=== PATIENT | female | born 1955 | race African-American/Black ===

== ENCOUNTER 2017-05-12 16:56 | Inpatient (IN) | payer OTHER ==
--- NOTE | 2017-05-12 16:59 | PDOC ---
Rapid Medical Evaluation Time Seen by Provider: 05/12/17 16:59 Medical Evaluation: Allergies Allergy/AdvReac Type Severity Reaction Status Date / Time Penicillins Allergy Verified 05/12/17 16:58 tomatoes Allergy Uncoded 05/12/17 16:58 05/12/17 16:59 61 year old female with a history of RA (started Rituxan on 04/18), asthma, fibromyalgia, and ILD (2L O2 at home 24h/day). Has been having worsening shortness of breath, decreased ET, and cough productive of "clear" sputum for 1.5 weeks. Has has Z-pack x 2 without relief. V/s on arrival are notable for P 132. -EKG -Cardiac labs -CXR -To monitored bed in Main ED for further evaluation
[2017-05-12 17:47] LABS: BASOPHIL 0.3 % (0-2.0); EOSINOPHIL 0.1 % (0-4.5); MCH 27.5 pg (25.7-33.7); MCHC 32.1 g/dl (32.0-36.0); MEAN CELL VOLUME 85.8 fl (80-96); MEAN PLT VOLUME 8.9 fl (7.5-11.1); NEUTROPHILS 94.6 % (42.8-82.8); PLATELET COUNT 289 K/MM3 (134-434); WHITE BLOOD COUNT 15.6 K/mm3 (4.0-10.0)
[2017-05-12 18:00] LABS: INR 0.97 (0.82-1.09); PROTHROMBIN TIME (PATIENT) 10.7 SEC (9.98-11.88)
--- NOTE | 2017-05-12 18:00 | PDOC ---
History of Present Illness - General History Source: Patient, Old Records Exam Limitations: No Limitations <Renee Mike - Last Filed: 05/12/17 18:01> - History of Present Illness Initial Comments: 05/12/17 18:38 Patient is a 61 year old female with significant medical hx of asthma (no intubations or ICU admissions), HLD, pulmonary HTN, migraine, interstitial lung disease, fibromyalgia, rheumatoid arthritis, osteoarthritis, and obesity who is presenting to the ED with progressive shortness of breath for two weeks. 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 She then reportedly underwent two more courses of antibiotics, bactrim and another z-pack, but still experiences symptoms. The patient complains of worsening shortness of breath that is present at all times but worsens with exertion, specifically when walking from one room to another. She also complains of productive cough with clear sputum. 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 However she was told to remain on the steroid for now due to her recent diagnosis with bronchitis. Denies fever, chills, chest pain, hx of blood clots, lower extremity pain or swelling, nausea, vomiting, diarrhea, or dysuria. Surgical Hx: cholecystectomy Allergies: penicillins PCP: Oma Woods MD Computer Programming Supervisor: (affiliated with [facility]) <Nicol Tapia - Last Filed: 05/12/17 18:46> <Ely Landa - Last Filed: 05/12/17 22:09> - General Chief Complaint: Shortness of Breath Stated Complaint: SOB/O2 DEPNEDANT Time Seen by Provider: 05/12/17 16:59 Past History - Past Medical History Asthma: Yes COPD: No (INTERSTITIAL LUNG DISEASE) Hypercholesterolemia: Yes Other medical history: R.A,FIBROMYALGIA - Surgical History Cholecystectomy: Yes - Psycho/Social/Smoking Cessation Hx Anxiety: No Suicidal Ideation: No Smoking History: Never smoked Have you smoked in the past 12 months: No Number of Cigarettes Smoked Daily: 0 Cigars Per Day: 0 Information on smoking cessation initiated: No Hx Alcohol Use: No Drug/Substance Use Hx: No Substance Use Type: None Hx Substance Use Treatment: No <Renee Mike - Last Filed: 05/12/17 18:01> <Nicol Tapia - Last Filed: 05/12/17 18:46> <SyedaEly - Last Filed: 05/12/17 22:09> - Past Medical History Allergies/Adverse Reactions: Allergies Allergy/AdvReac Type Severity Reaction Status Date / Time Penicillins Allergy Verified 05/12/17 16:58 tomatoes Allergy Uncoded 05/12/17 16:58 Home Medications: Ambulatory Orders Montelukast Na [Singulair -] 10 mg PO HS #30 tablet 12/05/15 Albuterol Sulfate Inhaler - [Ventolin HFA Inhaler -] 1 - 2 inh PO QID 02/15/16 Cetirizine HCl [Zyrtec -] 5 mg PO DAILY 02/15/16 Aspirin Coated [Ecotrin -] 81 mg PO DAILY #30 tablet.ec 02/18/16 Budesonide/Formeterol Fumarate [SYMBICORT 80/4.5mcg -] 2 inh PO BID #0 Esomeprazole Magnesium [Nexium 24Hr] 20 mg PO DAILY 05/12/17 Furosemide [Lasix -] 40 mg PO Q2D 05/12/17 Prednisone [Deltasone -] 20 mg PO DAILY 05/12/17 Review of Systems - Review of Systems Comments:: 05/12/17 18:39 GENERAL/CONSTITUTIONAL: No fever or chills. No weakness. HEAD, EYES, EARS, NOSE AND THROAT: No change in vision. No ear pain or discharge. No sore throat. CARDIOVASCULAR: Shortness of breath. No chest pain. RESPIRATORY: Productive cough, dyspnea with exertion. No wheezing or hemoptysis. GASTROINTESTINAL: No nausea, vomiting, diarrhea or constipation. GENITOURINARY: No dysuria, frequency, or change in urination. MUSCULOSKELETAL: No joint or muscle swelling or pain. No neck or back pain. ENDOCRINE: No increased thirst. No abnormal weight change. SKIN: No rash NEUROLOGIC: No headache, vertigo, loss of consciousness, or change in strength/ sensation. <Nicol Tapia - Last Filed: 05/12/17 18:46> *Physical Exam - Vital Signs Last Vital Signs Temp Pulse Resp BP Pulse Ox 98.0 F 123 H 24 156/103 98 05/12/17 16:59 05/12/17 16:59 05/12/17 16:59 05/12/17 16:59 05/12/17 16:59 <Renee Mike - Last Filed: 05/12/17 18:01> - Vital Signs Last Vital Signs Temp Pulse Resp BP Pulse Ox 98.0 F 123 H 24 156/103 98 05/12/17 16:59 05/12/17 16:59 05/12/17 16:59 05/12/17 16:59 05/12/17 16:59 - Physical Exam Comments: 05/12/17 18:41 GENERAL: Awake, alert, and fully oriented, in no acute distress HEAD: No signs of trauma EYES: PERRLA, EOMI, sclera anicteric, conjunctiva clear ENT: Auricles normal inspection, hearing grossly normal, nares patent, oropharynx clear without exudates. Moist mucosa NECK: Normal ROM, supple, no lymphadenopathy, JVD, or masses LUNGS: Crackles right lung base. No wheezes HEART: Regular rate and rhythm, normal S1 and S2, no murmurs, rubs or gallops ABDOMEN: Obese abdomen. Soft, nontender, normoactive bowel sounds. No guarding , no rebound. No masses EXTREMITIES: Normal range of motion, no edema. No clubbing or cyanosis. No calf tenderness. No cords, erythema, or tenderness NEUROLOGICAL: Cranial nerves II through XII grossly intact. Normal speech, normal gait SKIN: Warm, Dry, normal turgor, no rashes or lesions noted. HEMATOLOGIC/LYMPHATIC: No anemia, easy bleeding, or history of blood clots. ALLERGIC/IMMUNOLOGIC: No hives or skin allergy. <Nicol Tapia - Last Filed: 05/12/17 18:46> - Vital Signs Last Vital Signs Temp Pulse Resp BP Pulse Ox 98.0 F 123 H 24 156/103 98 05/12/17 16:59 05/12/17 16:59 05/12/17 16:59 05/12/17 16:59 05/12/17 16:59 <Ely Landa - Last Filed: 05/12/17 22:09> ED Treatment Course - LABORATORY CBC & Chemistry Diagram: 05/12/17 17:30 05/12/17 17:30 <Renee Mike - Last Filed: 05/12/17 18:01> - LABORATORY CBC & Chemistry Diagram: 05/12/17 17:30 05/12/17 17:30 - ADDITIONAL ORDERS Additional order review: Laboratory Results 05/12/17 05/12/17 05/12/17 17:30 17:30 17:30 INR 0.97 Sodium 141 Potassium 4.2 Chloride 101 Carbon Dioxide 28 Anion Gap 12 BUN 13 Creatinine 1.1 H D Creat Clearance w eGFR 50.84 Random Glucose 191 H Calcium 9.3 Total Bilirubin 0.4 AST 31 D ALT 58 D Alkaline Phosphatase 115 Creatine Kinase 154 D Troponin I < 0.02 B-Natriuretic Peptide 79.91 Total Protein 7.2 Albumin 3.5 05/12/17 17:30 RBC 4.97 MCV 85.8 MCHC 32.1 RDW 15.0 MPV 8.9 Neutrophils % 94.6 H Lymphocytes % 2.7 L D Monocytes % 2.3 L Eosinophils % 0.1 D Basophils % 0.3 - RADIOLOGY Radiograph Interpretation: 05/12/17 18:45 Chest X-Ray Impression: Right lung opacification of uncertain etiology. Clinical correlation and follow-up recommended. Please see discussion. Reported By: Cruz Acuna MD <Nicol Tapia - Last Filed: 05/12/17 18:46> - LABORATORY CBC & Chemistry Diagram: 05/12/17 17:30 05/12/17 17:30 - ADDITIONAL ORDERS Additional order review: Laboratory Results 05/12/17 05/12/17 05/12/17 17:30 17:30 17:30 INR 0.97 Sodium 141 Potassium 4.2 Chloride 101 Carbon Dioxide 28 Anion Gap 12 BUN 13 Creatinine 1.1 H D Creat Clearance w eGFR 50.84 Random Glucose 191 H Calcium 9.3 Total Bilirubin 0.4 AST 31 D ALT 58 D Alkaline Phosphatase 115 Creatine Kinase 154 D CK-MB (CK-2) < 1.000 Troponin I < 0.02 B-Natriuretic Peptide 79.91 Total Protein 7.2 Albumin 3.5 05/12/17 17:30 RBC 4.97 MCV 85.8 MCHC 32.1 RDW 15.0 MPV 8.9 Neutrophils % 94.6 H Lymphocytes % 2.7 L D Monocytes % 2.3 L Eosinophils % 0.1 D Basophils % 0.3 <Bharrat,Ely - Last Filed: 05/12/17 22:09> Medical Decision Making - Medical Decision Making 05/12/17 18:01 61 y/o female with h/o asthma with 2 week h/o progressively worsening SOB and SHELLEY. DDx includes but is not limited to: PE, CHF, mass lesion, PNA, PTX, anemia, electrolyte abnormality, toxic/metabolic derangement. Plan: 1. EKG 2. Labs 3. Cardiac monitoring 4. CT chest 5. Observe and re-evaluate <Renee Mike - Last Filed: 05/12/17 18:01> - Medical Decision Making 05/12/17 21:[address] Oma Woods (via answering service) at 21:57 Awaiting call back 05/12/17 22:09 Patient's case discussed with Dr. Woods at 22:09 <Ely Landa - Last Filed: 05/12/17 22:09> *DC/Admit/Observation/Transfer - Attestations Physician Attestion: 05/12/17 18:05 I, Dr. Renee Mike, attest that the scribes documentation that appears above has been prepared under my direction and personally reviewed by me in its entirety. I confirmed that the note above accurately reflects all work, treatment, procedures, and medical decision-making performed by me. <Renee Mike - Last Filed: 05/12/17 18:01> - Attestations Scribe Attestion: 05/12/17 18:46 Documentation prepared by Nicol Tapia, acting as medical screener for Renee Miek MD. <Nicol Tapia - Last Filed: 05/12/17 18:46> <Ely Landa - Last Filed: 05/12/17 22:09> Diagnosis at time of Disposition: Shortness of breath - Referrals Referrals: Oma Woods MD [Primary Care Provider] -
[2017-05-12 18:22] LABS: ALBUMIN 3.5 g/dl (3.4-5.0); ANION GAP 12 (8-16); BILIRUBIN,TOTAL 0.4 mg/dL (0.2-1.0); CALCIUM 9.3 mg/dL (8.5-10.1); CO2 28 mmol/L (21-32); COCKROFT - GAULT 98.5745; CREATININE 1.1 mg/dL (0.55-1.02); GLUCOSE,RANDOM 191 mg/dL (74-106); SGOT/AST 31 U/L (15-37); SGPT/ALT 58 U/L (12-78); TOT PROT 7.2 g/dl (6.4-8.2)
[2017-05-12 18:25] LABS: ALK PHOS 115 U/L (45-117); TROPONIN I < 0.02 ng/ml (0.00-0.05)
--- NOTE | 2017-05-12 22:11 | PDOC ---
*Physical Exam - Vital Signs Last Vital Signs Temp Pulse Resp BP Pulse Ox 98.0 F 123 H 24 156/103 98 05/12/17 16:59 05/12/17 16:59 05/12/17 16:59 05/12/17 16:59 05/12/17 16:59 ED Treatment Course - LABORATORY CBC & Chemistry Diagram: 05/12/17 17:30 05/12/17 17:30 - ADDITIONAL ORDERS Additional order review: Laboratory Results 05/12/17 05/12/17 05/12/17 17:30 17:30 17:30 INR D-Dimer 660 H Sodium 141 Potassium 4.2 Chloride 101 Carbon Dioxide 28 Anion Gap 12 BUN 13 Creatinine 1.1 H D Creat Clearance w eGFR 50.84 Random Glucose 191 H Calcium 9.3 Total Bilirubin 0.4 AST 31 D ALT 58 D Alkaline Phosphatase 115 Creatine Kinase 154 D CK-MB (CK-2) < 1.000 Troponin I < 0.02 B-Natriuretic Peptide 79.91 Total Protein 7.2 Albumin 3.5 05/12/17 17:30 INR 0.97 D-Dimer Sodium Potassium Chloride Carbon Dioxide Anion Gap BUN Creatinine Creat Clearance w eGFR Random Glucose Calcium Total Bilirubin AST ALT Alkaline Phosphatase Creatine Kinase CK-MB (CK-2) Troponin I B-Natriuretic Peptide Total Protein Albumin 05/12/17 17:30 RBC 4.97 MCV 85.8 MCHC 32.1 RDW 15.0 MPV 8.9 Neutrophils % 94.6 H Lymphocytes % 2.7 L D Monocytes % 2.3 L Eosinophils % 0.1 D Basophils % 0.3 *DC/Admit/Observation/Transfer Diagnosis at time of Disposition: Shortness of breath, Interstitial lung disease due to connective tissue disease - Discharge Dispostion Condition at time of disposition: Stable Admit: Yes - Referrals Referrals: Oma Woods MD [Primary Care Provider] - - Patient Instructions - Post Discharge Activity
[2017-05-12] MEDS ORDERED: PANTOPRAZOLE SODIUM 40 MG in SODIUM CHLORIDE 100 ML IVPB SCH (23:45)
[2017-05-13] MEDS ORDERED: ALBUTEROL SO4 2.5/IPRATROPIUM 0.5 INH SOL 3 ML VIAL.NEB. NEB PRN
[2017-05-13] MEDS: BUDESONIDE/FORMETEROL FUMARATE 160/4.5 mcg INHALER IH SCH ×3 (00:44→22:20)
[2017-05-13] MEDS: HEPARIN NA (PORCINE) 5,000 UNITS/ML 1ML VIAL SQ SCH ×3 (00:45→22:17)
[2017-05-13] MEDS: methylPREDNISolone NA SUCC 125 MG/2 ML VIAL IVPB SCH ×4 (00:45→17:39)
[2017-05-13] MEDS: ALBUTEROL SO4 2.5/IPRATROPIUM 0.5 INH SOL 3 ML VIAL.NEB. NEB SCH ×4 (00:45→23:54)
[2017-05-13] MEDS ORDERED: ALBUTEROL SO4 2.5/IPRATROPIUM 0.5 INH SOL 3 ML VIAL.NEB. NEB ONE (00:50)
[2017-05-13] MEDS ORDERED: PANTOPRAZOLE SODIUM 100 ML IVPB ONE (00:50)
[2017-05-13] MEDS ORDERED: methylPREDNISolone NA SUCC 125 MG/2 ML VIAL ONE ×4 (00:50→15:07)
[2017-05-13] MEDS ORDERED: HEPARIN NA (PORCINE) 5,000 UNITS/ML 1ML VIAL ONE ×2 (00:50→10:25)
[2017-05-13] MEDS ORDERED: LORazepam 0.5 MG TABLET ONE (06:16)
[2017-05-13] MEDS: LORazepam 1 MG TABLET PO SCH ×3 (06:26→22:17)
[2017-05-13] MEDS ORDERED: PANTOPRAZOLE SODIUM 40 MG VIAL ONE (10:25)
[2017-05-13] MEDS: PANTOPRAZOLE SODIUM 100 ML IVPB SCH ×2 (10:33→22:18)
--- NOTE | 2017-05-13 11:50 | EKG ---
Test Reason : Blood Pressure : / mmHG Vent. Rate : 117 BPM Atrial Rate : 117 BPM P-R Int : 124 ms QRS Dur : 066 ms QT Int : 306 ms P-R-T Axes : 064 050 155 degrees QTc Int : 426 ms SINUS TACHYCARDIA POSSIBLE LEFT ATRIAL ENLARGEMENT T WAVE ABNORMALITY, CONSIDER ANTEROLATERAL ISCHEMIA ABNORMAL ECG WHEN COMPARED WITH ECG OF 27-AUG-2016 22:24, T WAVE VARIATION Confirmed by IBETH TAYLOR, CAMPBELL ([id number]) on 05/13/2017 11:49:49 AM Referred By: Confirmed By:CAMPBELL CRISTINA MD
--- NOTE | 2017-05-13 13:08 | HP ---
Admitting History and Physical - Admission Chief Complaint: dyspnea History of Present Illness: Patient is a 61 year old female with significant medical hx of asthma (no intubations or ICU admissions), HLD, pulmonary HTN, migraine, interstitial lung disease, fibromyalgia, rheumatoid arthritis, osteoarthritis, and obesity who is presenting to the ED with progressive shortness of breath for two weeks. Two weeks ago the patient was diagnosed with bronchitis by facility environmental technician and given a three day course of a z-pack which she states did not relieve her symptoms. She then reportedly underwent two more courses of antibiotics, bactrim and another z-pack, but still experiences symptoms. The patient complains of worsening shortness of breath that is present at all times but worsens with exertion, specifically when walking from one room to another. She also complains of productive cough with clear sputum. 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 However she was told to remain on the steroid for now due to her recent diagnosis with bronchitis. Denies fever, chills, chest pain, hx of blood clots, lower extremity pain or swelling, nausea, vomiting, diarrhea, or dysuria. 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 History of Recent Travel: No Home Medications - Allergies Allergies/Adverse Reactions: Allergies Allergy/AdvReac Type Severity Reaction Status Date / Time Penicillins Allergy Verified 05/12/17 16:58 tomatoes Allergy Uncoded 05/12/17 16:58 - Home Medications Home Medications: Ambulatory Orders Montelukast Na [Singulair -] 10 mg PO HS #30 tablet 12/05/15 Albuterol Sulfate Inhaler - [Ventolin HFA Inhaler -] 1 - 2 inh PO QID 02/15/16 Cetirizine HCl [Zyrtec -] 5 mg PO DAILY 02/15/16 Aspirin Coated [Ecotrin -] 81 mg PO DAILY #30 tablet.ec 02/18/16 Budesonide/Formeterol Fumarate [SYMBICORT 80/4.5mcg -] 2 inh PO BID #0 Esomeprazole Magnesium [Nexium 24Hr] 20 mg PO DAILY 05/12/17 Furosemide [Lasix -] 40 mg PO Q2D 05/12/17 Prednisone [Deltasone -] 20 mg PO DAILY 05/12/17 Family Disease History - Family Disease History Family Disease History: Other: Mother (CVA in her late 70s) Review of Systems - Review of Systems Constitutional: reports: Malaise, Weakness Eyes: reports: No Symptoms HENT: reports: No Symptoms, Nasal Congestion Neck: reports: No Symptoms Cardiovascular: reports: Shortness of Breath Respiratory: reports: Cough, Orthopnea, Snoring, SOB, SOB on Exertion, Wheezing Gastrointestinal: reports: No Symptoms Genitourinary: reports: No Symptoms Breasts: reports: No Symptoms Reported Musculoskeletal: reports: Back Pain Integumentary: reports: No Symptoms Neurological: reports: No Symptoms Endocrine: reports: No Symptoms Hematology/Lymphatic: reports: No Symptoms Psychiatric: reports: No Symptoms Physical Examination Vital Signs: Vital Signs Temperature 98.0 F 05/13/17 11:32 Pulse Rate 100 H 05/13/17 11:32 Respiratory Rate 22 05/13/17 11:32 Blood Pressure 150/84 05/13/17 11:32 O2 Sat by Pulse Oximetry (%) 100 05/13/17 11:32 Findings/Remarks: sitting up un bed patietn seen in ER Constitutional: Yes: Well Nourished, Mild Distress Eyes: Yes: WNL HENT: Yes: WNL, Atraumatic, Normocephalic Neck: Yes: WNL, Supple, Trachea Midline Cardiovascular: Yes: WNL, Regular Rate and Rhythm Respiratory: Yes: WNL, Diminished, SOB Gastrointestinal: Yes: WNL, Normal Bowel Sounds, Soft Musculoskeletal: Yes: WNL Extremities: Yes: WNL Edema: No Peripheral Pulses WNL: Yes Integumentary: Yes: WNL Neurological: Yes: WNL, Alert, Oriented ...Motor Strength: WNL Psychiatric: Yes: WNL, Alert, Oriented Problem List - Problems (1) Interstitial lung disease due to connective tissue disease Code(s): M35.8 - OTHER SPECIFIED SYSTEMIC INVOLVEMENT OF CONNECTIVE TISSUE J84.89 - OTHER SPECIFIED INTERSTITIAL PULMONARY DISEASES (2) Acute asthma exacerbation Code(s): J45.901 - UNSPECIFIED ASTHMA WITH (ACUTE) EXACERBATION Qualifiers: Asthma severity: moderate persistent Qualified Code(s): J45.41 - Moderate persistent asthma with (acute) exacerbation (3) Asthma Code(s): J45.909 - UNSPECIFIED ASTHMA, UNCOMPLICATED (4) Cough Code(s): R05 - COUGH (5) Dyspnea Code(s): R06.00 - DYSPNEA, UNSPECIFIED Qualifiers: Dyspnea type: shortness of breath Qualified Code(s): R06.02 - Shortness of breath (6) Morbid obesity due to excess calories Code(s): E66.01 - MORBID (SEVERE) OBESITY DUE TO EXCESS CALORIES
--- NOTE | 2017-05-13 14:36 | CON.PULM ---
Consult Consult Specialty:: PULMONARY Referred by:: Dr. Woods Reason for Consultation:: shortness of breath - History of Present Illness Chief Complaint: shortness of breath History of Present Illness: 61yo female with h/o asthma, rheumatoid arthritis with associated interstitial lung disease, pulmonary HTN, chronic hypoxic respiratory failure on home O2, fibromyalgia, morbid obesity who presents with worsening shortness of breath. She has been treated with rituxan for her rheumatoid arthritis and has received 2 doses so far with the intention of getting off chronic prednisone. Has been on prednisone 20mg daily for "months." Last seen by me in August 2016 before I referred her down to [facility] for further ILD evaluation. She was recently seen by her victim witness administrator at [facility] but was kept on prednisone as she was experiencing bronchitis symptoms. No fevers, chills or sweats. She reports chest tightness, wheezing and shortness of breath typical of her asthma exacerbations. CTA chest done in the ER did not show any evidence of PE but showing chronic interstitial/fibrotic changes not significantly changed from Aug 2016. 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 History of Recent Travel: No Home Medications - Allergies Allergies/Adverse Reactions: Allergies Allergy/AdvReac Type Severity Reaction Status Date / Time Penicillins Allergy Verified 05/12/17 16:58 tomatoes Allergy Uncoded 05/12/17 16:58 - Home Medications Home Medications: Ambulatory Orders Montelukast Na [Singulair -] 10 mg PO HS #30 tablet 12/05/15 Albuterol Sulfate Inhaler - [Ventolin HFA Inhaler -] 1 - 2 inh PO QID 02/15/16 Cetirizine HCl [Zyrtec -] 5 mg PO DAILY 02/15/16 Aspirin Coated [Ecotrin -] 81 mg PO DAILY #30 tablet.ec 02/18/16 Budesonide/Formeterol Fumarate [SYMBICORT 80/4.5mcg -] 2 inh PO BID #0 Esomeprazole Magnesium [Nexium 24Hr] 20 mg PO DAILY 05/12/17 Furosemide [Lasix -] 40 mg PO Q2D 05/12/17 Prednisone [Deltasone -] 20 mg PO DAILY 05/12/17 Family Disease History - Family Disease History Family Disease History: Other: Mother (CVA in her late 70s) Review of Systems - Review of Systems Constitutional: denies: Chills, Fever Eyes: denies: Recent Change in Vision HENT: denies: Nasal Congestion, Throat Pain Neck: denies: Stiffness, Tenderness Cardiovascular: reports: Shortness of Breath. denies: Chest Pain, Palpitations Respiratory: reports: Cough, Exercise Intolerance, SOB on Exertion, Wheezing. denies: Hemoptysis Gastrointestinal: denies: Abdominal Pain, Nausea, Vomiting Genitourinary: denies: Dysuria, Hematuria Neurological: denies: Dizziness, Headache Endocrine: denies: Unexplained Weight Gain, Unexplained Weight Loss Physical Exam Vital Sings: Vital Signs Temperature 97.7 F 05/13/17 12:27 Pulse Rate 109 H 05/13/17 12:27 Respiratory Rate 18 05/13/17 12:27 Blood Pressure 122/85 05/13/17 12:27 O2 Sat by Pulse Oximetry (%) 100 05/13/17 11:32 Constitutional: Yes: Calm Eyes: Yes: Conjunctiva Clear, EOM Intact HENT: Yes: Atraumatic, Normocephalic Neck: Yes: Supple, Trachea Midline Cardiovascular: Yes: Regular Rate and Rhythm Respiratory: Yes: Regular, Rhonchi (scattered) ...Clubbing: No Gastrointestinal: Yes: Normal Bowel Sounds, Soft. No: Tenderness Edema: No Imaging - Results Chest X-ray: Report Reviewed, Image Reviewed Cat Scan: Report Reviewed, Image Reviewed (subplerual fibrosis) Problem List - Problems (1) Acute asthma exacerbation Code(s): J45.901 - UNSPECIFIED ASTHMA WITH (ACUTE) EXACERBATION Qualifiers: Asthma severity: moderate persistent Qualified Code(s): J45.41 - Moderate persistent asthma with (acute) exacerbation (2) Rheumatoid arthritis Code(s): M06.9 - RHEUMATOID ARTHRITIS, UNSPECIFIED (3) Interstitial lung disease due to connective tissue disease Code(s): M35.8 - OTHER SPECIFIED SYSTEMIC INVOLVEMENT OF CONNECTIVE TISSUE J84.89 - OTHER SPECIFIED INTERSTITIAL PULMONARY DISEASES (4) Morbid obesity with BMI of 40.0-44.9, adult Code(s): E66.01 - MORBID (SEVERE) OBESITY DUE TO EXCESS CALORIES Z68.41 - BODY MASS INDEX (BMI) 40.0-44.9, ADULT (5) Pulmonary hypertension Code(s): I27.2 - OTHER SECONDARY PULMONARY HYPERTENSION (6) Chronic respiratory failure with hypoxia Code(s): J96.11 - CHRONIC RESPIRATORY FAILURE WITH HYPOXIA Assessment/Plan Acute Asthma Exacerbation Rheumatoid Arthritis with Interstitial Lung Disease Chronic Hypoxic Respiratory Failure Pulmonary HTN - agree with IV medrol but will decrease dosing - inhaled bronchodilators standing and PRN - O2 to keep SpO2 >90% - singulair - DVT prophylaxis Thank you for this consult Abdiaziz Schulz MD
[2017-05-13 18:55] VITALS: BMI 27.4
[2017-05-13] MEDS ORDERED: ACETAMINOPHEN 1000 MG/100 ML VIAL (NON FORMULARY) IVPB ONE (21:00)
[2017-05-13] MEDS: MONTELUKAST NA 10 MG TABLET PO SCH (22:17)
[2017-05-14] MEDS: methylPREDNISolone NA SUCC 125 MG/2 ML VIAL IVPB SCH ×2 (02:03→09:44)
[2017-05-14] MEDS: LORazepam 1 MG TABLET PO SCH ×3 (06:20→21:57)
[2017-05-14] MEDS: ALBUTEROL SO4 2.5/IPRATROPIUM 0.5 INH SOL 3 ML VIAL.NEB. NEB SCH ×3 (06:58→17:25)
[2017-05-14 08:52] LABS: MCH 27.5 pg (25.7-33.7); MCHC 32.3 g/dl (32.0-36.0); MEAN CELL VOLUME 85.2 fl (80-96); MEAN PLT VOLUME 9.3 fl (7.5-11.1); PLATELET COUNT 265 K/MM3 (134-434); RDW 14.7 % (11.6-15.6); WHITE BLOOD COUNT 23.1 K/mm3 (4.0-10.0)
[2017-05-14 09:19] LABS: CALCIUM 10.1 mg/dL (8.5-10.1); COCKROFT - GAULT 79.4665; CREATININE 0.9 mg/dL (0.55-1.02)
[2017-05-14 09:23] LABS: CHOLESTEROL 308 mg/dL (50-200); LDL CHOLESTEROL (ONLY SJRH) 156 mg/dL (5-100)
[2017-05-14 09:27] LABS: THYROID STIMULATING HORMONE 0.5 uIU/ml (0.358-3.74)
[2017-05-14] MEDS: PANTOPRAZOLE SODIUM 100 ML IVPB SCH (09:45)
[2017-05-14] MEDS: BUDESONIDE/FORMETEROL FUMARATE 160/4.5 mcg INHALER IH SCH ×2 (09:45→22:07)
[2017-05-14] MEDS: HEPARIN NA (PORCINE) 5,000 UNITS/ML 1ML VIAL SQ SCH ×2 (09:56→21:57)
[2017-05-14 10:24] LABS: PLATELET ESTIMATE ADEQUATE (NORMAL)
--- NOTE | 2017-05-14 10:47 | PN ---
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 ) neck supple heart reg S1/S2 Lungs clear improved air movement abd obese ext no edema CBC, BMP 05/14/17 07:30 05/14/17 07:30 Active Medications Albuterol/Ipratropium (Duoneb -) 1 amp NEB QIDR [facility] Last Admin: 05/14/17 06:58 Dose: 1 amp Albuterol/Ipratropium (Duoneb -) 1 amp NEB Q4H PRN PRN Reason: SHORTNESS OF BREATH Budesonide/Formoterol Fumarate (Symbicort 160/4.5mcg -) 1 puff IH BID [facility] Last Admin: 05/14/17 09:45 Dose: 1 puff Heparin Sodium (Porcine) (Heparin -) 5,000 unit SQ BID [facility] Last Admin: 05/14/17 09:56 Dose: 5,000 unit Pantoprazole Sodium (Protonix 40mg Ivpb (Pre-Docked)) 100 mls @ 200 mls/hr IVPB BID [facility] Last Admin: 05/14/17 09:45 Dose: 200 mls/hr Lorazepam (Ativan -) 1 mg PO TID [facility] Stop: 05/15/17 23:59 Last Admin: 05/14/17 06:20 Dose: Not Given Methylprednisolone Sodium Succinate (Solu-Medrol -) 40 mg IVPB BID [facility] Montelukast Sodium (Singulair -) 10 mg PO HS [facility] Last Admin: 05/13/17 22:17 Dose: 10 mg Problem List - Problems (1) Interstitial lung disease due to connective tissue disease Code(s): M35.8 - OTHER SPECIFIED SYSTEMIC INVOLVEMENT OF CONNECTIVE TISSUE J84.89 - OTHER SPECIFIED INTERSTITIAL PULMONARY DISEASES (2) Acute asthma exacerbation Code(s): J45.901 - UNSPECIFIED ASTHMA WITH (ACUTE) EXACERBATION Qualifiers: Asthma severity: moderate persistent Qualified Code(s): J45.41 - Moderate persistent asthma with (acute) exacerbation (3) Asthma Code(s): J45.909 - UNSPECIFIED ASTHMA, UNCOMPLICATED (4) Cough Code(s): R05 - COUGH (5) Dyspnea Code(s): R06.00 - DYSPNEA, UNSPECIFIED Qualifiers: Dyspnea type: shortness of breath Qualified Code(s): R06.02 - Shortness of breath (6) Morbid obesity due to excess calories Code(s): E66.01 - MORBID (SEVERE) OBESITY DUE TO EXCESS CALORIES
[2017-05-14] MEDS: MONTELUKAST NA 10 MG TABLET PO SCH (21:57)
[2017-05-14] MEDS: methylPREDNISolone NA SUCC 40 MG/1 ML VIAL IVPB SCH (21:58)
[2017-05-15] MEDS: ALBUTEROL SO4 2.5/IPRATROPIUM 0.5 INH SOL 3 ML VIAL.NEB. NEB SCH ×3 (00:07→12:05)
[2017-05-15] MEDS: LORazepam 1 MG TABLET PO SCH ×2 (06:06→13:23)
--- NOTE | 2017-05-15 08:49 | PN ---
Progress Note (short form) - Note Progress Note: Reports breathing feels overall better from admission. Significant nasal congestion / sinus BARNETT. Intake & Output 05/12/17 05/13/17 05/14/17 05/15/17 23:59 23:59 23:59 23:59 Intake Total 400 1800 100 Balance 400 1800 100 Weight 250 lb 164 lb 14.4 oz Last Vital Signs Temp Pulse Resp BP Pulse Ox 97.9 F 108 H 20 149/85 97 05/15/17 06:39 05/15/17 06:39 05/15/17 06:39 05/15/17 06:39 05/14/17 21:00 Active Medications Albuterol/Ipratropium (Duoneb -) 1 amp NEB QIDR [facility] Last Admin: 05/15/17 06:11 Dose: 1 amp Albuterol/Ipratropium (Duoneb -) 1 amp NEB Q4H PRN PRN Reason: SHORTNESS OF BREATH Budesonide/Formoterol Fumarate (Symbicort 160/4.5mcg -) 1 puff IH BID [facility] Last Admin: 05/14/17 22:07 Dose: 1 puff Heparin Sodium (Porcine) (Heparin -) 5,000 unit SQ BID [facility] Last Admin: 05/14/17 21:57 Dose: 5,000 unit Lorazepam (Ativan -) 1 mg PO TID [facility] Stop: 05/15/17 23:59 Last Admin: 05/15/17 06:06 Dose: 1 mg Methylprednisolone Sodium Succinate (Solu-Medrol -) 40 mg IVPB BID [facility] Last Admin: 05/14/17 21:58 Dose: 40 mg Montelukast Sodium (Singulair -) 10 mg PO HS [facility] Last Admin: 05/14/17 21:57 Dose: 10 mg Pantoprazole Sodium (Protonix -) 40 mg PO DAILY [facility] Constitutional: Yes: NAD Eyes: Yes: Conjunctiva Clear, EOM Intact HENT: Yes: Atraumatic, Normocephalic Neck: Yes: Supple, Trachea Midline Cardiovascular: Yes: Regular Rate and Rhythm Respiratory: Yes: Regular, Scattered Rhonchi ...Clubbing: No Gastrointestinal: Yes: Normal Bowel Sounds, Soft. No: Tenderness Edema: No Laboratory Results - last 24 hr 05/14/17 05/14/17 05/14/17 07:30 07:30 07:30 WBC 23.1 H D RBC 4.71 Hgb 12.9 Hct 40.1 MCV 85.2 MCHC 32.3 RDW 14.7 Plt Count 265 MPV 9.3 Neutrophils % 94.0 H Lymphocytes % 3.0 L Monocytes % 3.0 L Differential Comment Manual diff done Platelet Estimate Adequate Sodium 139 Potassium 4.4 Chloride 102 Carbon Dioxide 26 Anion Gap 11 BUN 15 Creatinine 0.9 Random Glucose 253 H D Hemoglobin A1c % Calcium 10.1 Triglycerides 122 Cholesterol 308 H D Total LDL Cholesterol 156 H HDL Cholesterol 146 H D TSH 0.50 D 05/14/17 08:39 WBC RBC Hgb Hct MCV MCHC RDW Plt Count MPV Neutrophils % Lymphocytes % Monocytes % Differential Comment Platelet Estimate Sodium Potassium Chloride Carbon Dioxide Anion Gap BUN Creatinine Random Glucose Hemoglobin A1c % 7.9 H D Calcium Triglycerides Cholesterol Total LDL Cholesterol HDL Cholesterol TSH Problem List - Problems (1) Acute asthma exacerbation Code(s): J45.901 - UNSPECIFIED ASTHMA WITH (ACUTE) EXACERBATION Qualifiers: Asthma severity: moderate persistent Qualified Code(s): J45.41 - Moderate persistent asthma with (acute) exacerbation (2) Rheumatoid arthritis Code(s): M06.9 - RHEUMATOID ARTHRITIS, UNSPECIFIED (3) Interstitial lung disease due to connective tissue disease Code(s): M35.8 - OTHER SPECIFIED SYSTEMIC INVOLVEMENT OF CONNECTIVE TISSUE J84.89 - OTHER SPECIFIED INTERSTITIAL PULMONARY DISEASES (4) Morbid obesity with BMI of 40.0-44.9, adult Code(s): E66.01 - MORBID (SEVERE) OBESITY DUE TO EXCESS CALORIES Z68.41 - BODY MASS INDEX (BMI) 40.0-44.9, ADULT (5) Pulmonary hypertension Code(s): I27.2 - OTHER SECONDARY PULMONARY HYPERTENSION (6) Chronic respiratory failure with hypoxia Code(s): J96.11 - CHRONIC RESPIRATORY FAILURE WITH HYPOXIA Assessment/Plan Acute Asthma Exacerbation Rheumatoid Arthritis with Interstitial Lung Disease Chronic Hypoxic Respiratory Failure Pulmonary HTN Suspected OSAS - IV Medrol - Nasal steroids - inhaled bronchodilators standing and PRN - O2 to keep SpO2 >90% - Singulair - DVT prophylaxis - OOB to chair and ambulate - Should have Sleep Apnea workup after discharge Dr Alanis
[2017-05-15] MEDS ORDERED: SODIUM CHLORIDE NASAL SPRAY 44 ML BOTTLE NS PRN (09:14)
[2017-05-15] MEDS ORDERED: PT OWN MED DRAWER 7, Y5N ONE (09:51)
[2017-05-15] MEDS: BUDESONIDE/FORMETEROL FUMARATE 160/4.5 mcg INHALER IH SCH (09:54)
[2017-05-15] MEDS: methylPREDNISolone NA SUCC 40 MG/1 ML VIAL IVPB SCH (09:54)
[2017-05-15] MEDS: HEPARIN NA (PORCINE) 5,000 UNITS/ML 1ML VIAL SQ SCH (09:54)
[2017-05-15] MEDS ORDERED: FLUTICASONE PROP 0.05% 16 GM NASAL SPRAY NS SCH (10:00)
[2017-05-15] MEDS ORDERED: PANTOPRAZOLE 40 MG TABLET (FP) PO SCH (10:00)
--- NOTE | 2017-05-15 13:56 | DS ---
Physical Examination Vital Signs: Vital Signs Temperature 97.9 F 05/15/17 06:39 Pulse Rate 108 H 05/15/17 06:39 Respiratory Rate 20 05/15/17 06:39 Blood Pressure 149/85 05/15/17 06:39 O2 Sat by Pulse Oximetry (%) 97 05/14/17 21:00 Findings/Remarks: patient seen and examined in her room has been on tapering steroids tolerating very well not dyspneic at rest able to ambulate in room comfortably ( o2 in place) Constitutional: Yes: Well Nourished, No Distress, Calm, Other (cushinoid facies) Eyes: Yes: WNL, Conjunctiva Clear HENT: Yes: WNL, Atraumatic Neck: Yes: WNL, Supple, Trachea Midline Cardiovascular: Yes: WNL, Regular Rate and Rhythm Respiratory: Yes: WNL, Regular, CTA Bilaterally, Other (improved air movement) Gastrointestinal: Yes: WNL, Abdomen, Obese, Other (central obesity) Renal/: Yes: WNL Breast(s): Yes: WNL Musculoskeletal: Yes: WNL Extremities: Yes: WNL Edema: No Peripheral Pulses WNL: Yes Integumentary: Yes: WNL Neurological: Yes: WNL ...Motor Strength: WNL Psychiatric: Yes: WNL, Alert, Oriented Labs: CBC, BMP 05/14/17 07:30 05/14/17 07:30 Discharge Summary Reason For Visit: MORBID OBESITY DUE TO EXCESS CALORIES Current Active Problems Chronic respiratory failure with hypoxia (Acute) Interstitial lung disease due to connective tissue disease (Acute) Rheumatoid arthritis (Acute) Shortness of breath (Acute) Hospital Course: Chief Complaint: shortness of breath History of Present Illness: 61yo female with h/o asthma, rheumatoid arthritis with associated interstitial lung disease, pulmonary HTN, chronic hypoxic respiratory failure on home O2, fibromyalgia, morbid obesity who presents with worsening shortness of breath. She has been treated with rituxan for her rheumatoid arthritis and has received 2 doses so far with the intention of getting off chronic prednisone. Has been on prednisone 20mg daily for "months." Last seen by me in August 2016 before I referred her down to [facility] for further ILD evaluation. She was recently seen by her gill box operator at [facility] but was kept on prednisone as she was experiencing bronchitis symptoms. No fevers, chills or sweats. She reports chest tightness, wheezing and shortness of breath typical of her asthma exacerbations. CTA chest done in the ER did not show any evidence of PE but showing chronic interstitial/fibrotic changes not significantly changed from Aug 2016. Patient was started on IV steroids / nebulizers / singulair/ no abx ( as had completed full tx as out patient ) / received IV Rutuxin about 1 month ago / followed at [facility]--- she had significant improvement within 24 hrs of admission possibly due to steroids + effect of Rutuxin ( peaks at about a month of administration ) She had rapid taper of steroids and continued with improvement. I will discharge today with instructions to continue steroids at 20 mg q am and return for follow up at [facility]. She will also schedule sleep apnea testing as outpatient. Condition: Improved - Instructions Referrals: Oma Woods MD [Primary Care Provider] - Disposition: HOME - Home Medications Comprehensive Discharge Medication List: Ambulatory Orders Montelukast Na [Singulair -] 10 mg PO HS #30 tablet 12/05/15 Albuterol Sulfate Inhaler - [Ventolin HFA Inhaler -] 1 - 2 inh PO QID 02/15/16 Cetirizine HCl [Zyrtec -] 5 mg PO DAILY 02/15/16 Aspirin Coated [Ecotrin -] 81 mg PO DAILY #30 tablet.ec 02/18/16 Budesonide/Formeterol Fumarate [SYMBICORT 80/4.5mcg -] 2 inh PO BID #0 Esomeprazole Magnesium [Nexium 24Hr] 20 mg PO DAILY 05/12/17 Furosemide [Lasix -] 40 mg PO Q2D 05/12/17 Prednisone [Deltasone -] 20 mg PO DAILY 05/12/17
[2017-05-15 14:35] VITALS: BP 136/78; PULSE 110; TEMP 99.4
== END 2017-05-15 15:07 | disposition home or self-care (01) | DRG 197 ==
LOC: JER 16:56 → JERBED 22:11 → J8W 05-13 11:53
PROVIDERS: ADMIT Family Medicine; ATTEND Family Medicine
DX: J84.9 Interstitial pulmonary disease, unspecified (principal); J96.11 Chronic respiratory failure with hypoxia; J45.41 Moderate persistent asthma with (acute) exacerbation; Z68.27 Body mass index [BMI] 27.0-27.9, adult; M06.9 Rheumatoid arthritis, unspecified; I27.2 Other secondary pulmonary hypertension; E78.5 Hyperlipidemia, unspecified; E66.9 Obesity, unspecified
CPT/HCPCS: 36415; 71010-TC; 71275-TC; 80048; 80053; 80061; 82550; 82553; 83036; 83721; 83880; 84443; 84484; 85025; 85379; 85610; 93005; 93010; 94640; 99284-25; J1644

== ENCOUNTER 2017-12-29 23:02 | Inpatient (IN) | payer OTHER ==
--- NOTE | 2017-12-30 00:43 | PDOC ---
History of Present Illness - General Chief Complaint: Respiratory Stated Complaint: RESPIRATORY Time Seen by Provider: 12/29/17 23:43 - History of Present Illness Initial Comments: 61yo F with a PMHx of Asthma, Interstitial Lung disease (on 2L home O2 continuously), Pulmonary HTN, dCHF, ASIYA who presents w/ gradual onset shortness of breath. She follows with [facility] (Dr Maya) for her ILD and has been on chronic steroids (currently on Prednisone 2.5 daily). She was seen by Dr Maya two weeks ago, who noted that her heart rate was tachycardic, and started her on Carvedilol. Since taking Carvedilol, she noticed progressively worsening shortness of breath. She checked her pulse ox and noted it to be in the 80s. She called Dr Maya's office this morning, and was advised to discontinue the Carvedilol, but still felt SOB. Endorses 1 day of productive cough. Denies fevers, chills, CP. Denies increasing orthopnea or leg swelling. Denies sick contacts. Upon arriving to the ER, patients pulse Ox was low 80s. Placed on nonrebreather 15L, now at 100% Pulmonary - Dr Tamera Joe ([facility]) PMD - Dr. Peggy NESS - Never smoker, no alcohol, no drugs Allergies - Penicillin SgHx - Cholecystectomy Past History - Past Medical History Allergies/Adverse Reactions: Allergies Allergy/AdvReac Type Severity Reaction Status Date / Time Penicillins Allergy Verified 12/29/17 23:51 tomatoes Allergy Uncoded 12/29/17 23:51 Home Medications: Ambulatory Orders Cetirizine HCl [Zyrtec -] 5 mg PO DAILY PRN 02/15/16 Aspirin Coated [Ecotrin -] 81 mg PO DAILY #30 tablet.ec 02/18/16 Esomeprazole Magnesium [Nexium 24Hr] 20 mg PO DAILY PRN 05/12/17 Furosemide [Lasix -] 40 mg PO Q2D 05/12/17 Fluticasone Prop 0.05% Nasal [Flonase -] 2 spray NS DAILY spray 05/15/17 Gabapentin [Neurontin -] 100 mg PO Q8H PRN 12/29/17 Prednisone [Deltasone -] 2.5 mg PO DAILY 12/30/17 Asthma: Yes COPD: Yes (INTERSTITIAL LUNG DISEASE) Hypercholesterolemia: Yes - Surgical History Cholecystectomy: Yes - Suicide/Smoking/Psychosocial Hx Smoking History: Never smoked Have you smoked in the past 12 months: No Number of Cigarettes Smoked Daily: 0 Cigars Per Day: 0 Information on smoking cessation initiated: No Hx Alcohol Use: No Drug/Substance Use Hx: No Substance Use Type: None Hx Substance Use Treatment: No *Physical Exam - Vital Signs Last Vital Signs Temp Pulse Resp BP Pulse Ox 97.7 F 102 H 20 110/71 100 12/29/17 23:30 12/29/17 23:30 12/29/17 23:30 12/29/17 23:30 12/30/17 00:24 - Physical Exam Comments: GEN: Obese, AAOx3, NAD, Lying comfortably w/ ventimask HEENT: PERRLA, EOMi, no JVD CV: S1, S2, RRR LUNG: Fine inspiratory crackles ABD: Soft, NT, ND, normoactive BS MSK: No edema, no erythema NEURO: CN 2-12 grossly intact ED Treatment Course - LABORATORY CBC & Chemistry Diagram: 12/30/17 00:56 12/30/17 00:56 - RADIOLOGY Radiology Studies Ordered: Category Date Time Status CXRPORT [CHEST X-RAY PORTABLE*] [RAD] Stat Radiology 12/30/17 00:26 Ordered Medical Decision Making - Medical Decision Making 62yo obese F with PMHx of ILD on chronic prednisone and continuous 2L O2, pulmonary HTN who presents with gradual onset hypoxic respiratory failure DDx include: Infectious (PNA, Viral), Cardiac (ACS, dCHF exacerbation) -- CBC, CMP -- Cardiac Profile, EKG -- BNP -- PT/INR, PTT -- Influenza A&B stat -- CXR PA & Lateral -- Duonebs x1 *DC/Admit/Observation/Transfer Diagnosis at time of Disposition: Acute and chronic respiratory failure with hypoxia - Discharge Dispostion Condition at time of disposition: Stable Admit: Yes - Referrals Referrals: Oma Woods MD [Primary Care Provider] - - Patient Instructions - Post Discharge Activity
[2017-12-30 01:07] LABS: BASO % 0.8 % (0-2.0); EOS % 3.1 % (0-4.5); HEMATOCRIT 39.1 % (32.4-45.2); HEMOGLOBIN 12.3 GM/dL (10.7-15.3); LYMPH % 8.7 % (8-40); MCH 25.5 pg (25.7-33.7); MCHC 31.4 g/dl (32.0-36.0); MEAN CELL VOLUME 81.2 fl (80-96); MEAN PLT VOLUME 9.1 fl (7.5-11.1); MONO % 7.1 % (3.8-10.2); NEUT % 80.3 % (42.8-82.8); PLATELET COUNT 326 K/MM3 (134-434); RBC 4.82 M/mm3 (3.60-5.2)
[2017-12-30] MEDS ORDERED: ALBUTEROL SO4 2.5/IPRATROPIUM 0.5 INH SOL 3 ML VIAL.NEB. NEB ONE ×2 (01:08→01:28)
[2017-12-30 01:27] LABS: INR 1.04 (0.82-1.09); PROTHROMBIN TIME (PATIENT) 11.7 SEC (9.98-11.88)
[2017-12-30 01:30] LABS: ACTIVATED PTT 29.6 SECONDS (26.9-34.4)
[2017-12-30 01:34] LABS: ALK PHOS 93 U/L (45-117); ANION GAP 9 (8-16); BILIRUBIN,TOTAL 0.4 mg/dL (0.2-1.0); BLOOD UREA NITROGEN 7 mg/dL (7-18); CALCIUM 8.5 mg/dL (8.5-10.1); CHLORIDE 107 mmol/L (98-107); CO2 27 mmol/L (21-32); CREATININE 0.7 mg/dL (0.55-1.02); GLUCOSE,RANDOM 171 mg/dL (74-106); POTASSIUM 3.9 mmol/L (3.5-5.1); SGOT/AST 12 U/L (15-37); SGPT/ALT 19 U/L (12-78); SODIUM 143 mmol/L (136-145); TOT PROT 6.1 g/dl (6.4-8.2)
[2017-12-30 01:55] LABS: N-TERMINAL BNP 1297.16 pg/ml (5-125)
--- NOTE | 2017-12-30 02:22 | PDOC ---
Attending Attestation - Resident Resident Name: Marbin Lemos - ED Attending Attestation I have performed the following: I have examined & evaluated the patient, The case was reviewed & discussed with the resident, I agree w/resident's findings & plan, Exceptions are as noted - HPI HPI: 12/30/17 02:20 62yoF hx of asthma, ILD, pHTN, CHF, morbid obesity presents w/ SOB and increasing O2 requirement since starting a new beta sandy for tachycardia. Pt noting O2 sat in the mid-70's at home on her baseline 2L O2. No fevers, no new cough, no cp, no syncope. pmhx as per res note shx as per res note allerg: PCN Vital Signs Temperature 97.7 F 12/29/17 23:30 Pulse Rate 102 H 12/29/17 23:30 Respiratory Rate 20 12/29/17 23:30 Blood Pressure 110/71 12/29/17 23:30 O2 Sat by Pulse Oximetry (%) 100 12/30/17 00:24 NAD + tachypnea, RR on examination closer to 30-34, + diffuse crackles, no wheezing RRR soft NTND A&O x 3 62yoF w/ significant increase in O2 requirement. - labs - flu swab - cxr - continuous pulse ox montioring - admit.
[2017-12-30] MEDS ORDERED: FUROSEMIDE 40 MG/4 ML INJECTABLE VIAL IVPUSH ONE (02:24)
[2017-12-30] MEDS ORDERED: FUROSEMIDE 40 MG/4 ML INJECTABLE VIAL ONE (02:27)
[2017-12-30] MEDS ORDERED: ALBUTEROL SO4 2.5/IPRATROPIUM 0.5 INH SOL 3 ML VIAL.NEB. NEB PRN (11:14)
--- NOTE | 2017-12-30 11:36 | HP ---
Admitting History and Physical - Admission Chief Complaint: dyspnea History of Present Illness: 61yo F with a PMHx of Interstitial Lung disease (on 2L home O2 continuously), Pulmonary HTN, dCHF, ASIYA who presents w/ gradual onset shortness of breath. She follows with [facility] (Dr Maya) for her ILD and has been tx with DMARS and being tapered off chronic steroids (currently on Prednisone 2.5 daily). She was seen by Dr Maya two weeks ago, who noted that her heart rate was tachycardic, and started her on Carvedilol. Since taking Carvedilol, she noticed progressively worsening shortness of breath. She checked her pulse ox and noted it to be in the 80s. She called Dr Maya's office this morning, and was advised to discontinue the Carvedilol, but still felt SOB. Endorses 1 day of productive cough. Denies fevers, chills, CP. Denies increasing orthopnea or leg swelling. Denies sick contacts. Upon arriving to the ER, patients pulse Ox was low 80s. Placed on nonrebreather 15L, now at 100% Pulmonary - Dr Tamera Joe ([facility]) PMD - Dr. Woods - Never smoker, no alcohol, no drugs Allergies - Penicillin History Source: Patient, Medical Record Limitations to Obtaining History: No Limitations - Past Medical History GUT PULLER: Yes: Migraine, Other Cardiovascular: Yes: Hyperlipdemia, Pulmonary Hypertension (PASP 45 mmHg on echo from 11/14 and 30-40 mmHg on echo from this admission). 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 History of Recent Travel: No Home Medications - Allergies Allergies/Adverse Reactions: Allergies Allergy/AdvReac Type Severity Reaction Status Date / Time Penicillins Allergy Verified 12/29/17 23:51 tomatoes Allergy Uncoded 12/29/17 23:51 - Home Medications Home Medications: Ambulatory Orders Cetirizine HCl [Zyrtec -] 5 mg PO DAILY PRN 02/15/16 Aspirin Coated [Ecotrin -] 81 mg PO DAILY #30 tablet.ec 02/18/16 Esomeprazole Magnesium [Nexium 24Hr] 20 mg PO DAILY PRN 05/12/17 Furosemide [Lasix -] 40 mg PO Q2D 05/12/17 Fluticasone Prop 0.05% Nasal [Flonase -] 2 spray NS DAILY spray 05/15/17 Gabapentin [Neurontin -] 100 mg PO Q8H PRN 12/29/17 Prednisone [Deltasone -] 2.5 mg PO DAILY 12/30/17 Family Disease History - Family Disease History Family Disease History: Other: Mother (CVA in her late 70s) Review of Systems - Review of Systems Constitutional: denies: Chills, Diaphoresis, Fever Eyes: reports: No Symptoms HENT: reports: No Symptoms Neck: reports: No Symptoms Cardiovascular: reports: Shortness of Breath. denies: Chest Pain, Edema Respiratory: reports: Cough, Exercise Intolerance, Snoring, SOB on Exertion. denies: Hemoptysis Gastrointestinal: denies: Abdominal Pain Genitourinary: reports: No Symptoms Breasts: reports: No Symptoms Reported Integumentary: reports: No Symptoms Neurological: reports: No Symptoms Endocrine: reports: No Symptoms Hematology/Lymphatic: reports: No Symptoms Psychiatric: reports: No Symptoms Physical Examination Vital Signs: Vital Signs Temperature 98.9 F 12/30/17 08:12 Pulse Rate 96 H 12/30/17 07:00 Respiratory Rate 22 12/30/17 07:00 Blood Pressure 108/66 12/30/17 07:00 O2 Sat by Pulse Oximetry (%) 96 12/30/17 07:00 Constitutional: Yes: Well Nourished, No Distress, Obese Eyes: Yes: Conjunctiva Clear, EOM Intact HENT: Yes: Atraumatic, Normocephalic Neck: Yes: Supple, Trachea Midline Cardiovascular: Yes: Tachycardia Respiratory: Yes: Diminished, On Nasal O2, Rhonchi, SOB, Wheezes Gastrointestinal: Yes: Abdomen, Obese Breast(s): Yes: WNL Musculoskeletal: Yes: WNL Extremities: Yes: WNL Edema: No Peripheral Pulses: Left Radial: 2+, Right Radial: 2+, Left Doralis Pedis: 2+, Right Dorsalis Pedis: 2+, Left Femoral: 2+, Right Femoral: 2+ Integumentary: Yes: WNL Neurological: Yes: Alert, Oriented ...Motor Strength: WNL Psychiatric: Yes: Alert, Oriented Labs: CBC, BMP 12/30/17 00:56 12/30/17 00:56 Problem List - Problems (1) Dyspnea Code(s): R06.00 - DYSPNEA, UNSPECIFIED Qualifiers: Dyspnea type: shortness of breath Qualified Code(s): R06.02 - Shortness of breath (2) Hypoxia Code(s): R09.02 - HYPOXEMIA (3) Interstitial lung disease due to connective tissue disease Code(s): M35.8 - OTHER SPECIFIED SYSTEMIC INVOLVEMENT OF CONNECTIVE TISSUE; J84.89 - OTHER SPECIFIED INTERSTITIAL PULMONARY DISEASES (4) Morbid obesity due to excess calories Code(s): E66.01 - MORBID (SEVERE) OBESITY DUE TO EXCESS CALORIES (5) Pulmonary hypertension Code(s): I27.2 - OTHER SECONDARY PULMONARY HYPERTENSION * DO NOT USE * (6) Shortness of breath Code(s): R06.02 - SHORTNESS OF BREATH
[2017-12-30 11:39] VITALS: BMI 40.3
[2017-12-30] MEDS: PANTOPRAZOLE SOD 40 MG SUSPENSION PACKET NGT SCH (12:51)
[2017-12-30] MEDS: methylPREDNISolone NA SUCC 40 MG/1 ML VIAL IVPUSH SCH ×3 (12:51→21:18)
[2017-12-30] MEDS: DOCUSATE SODIUM 100 MG CAPSULE (FP) PO SCH ×2 (12:52→21:19)
[2017-12-30] MEDS: PREGABALIN 75 MG CAPSULE PO SCH ×2 (13:21→21:18)
[2017-12-30 13:40] LABS: ANION GAP 12 (8-16); BLOOD UREA NITROGEN 6 mg/dL (7-18); CALCIUM 8.9 mg/dL (8.5-10.1); CHLORIDE 105 mmol/L (98-107); CO2 26 mmol/L (21-32); CREATININE 0.8 mg/dL (0.55-1.02); GLUCOSE,RANDOM 133 mg/dL (74-106); SODIUM 143 mmol/L (136-145)
[2017-12-30 13:43] LABS: POTASSIUM 3.8 mmol/L (3.5-5.1)
--- NOTE | 2017-12-30 13:47 | EKG ---
Test Reason : Blood Pressure : / mmHG Vent. Rate : 104 BPM Atrial Rate : 104 BPM P-R Int : 142 ms QRS Dur : 066 ms QT Int : 358 ms P-R-T Axes : 067 067 254 degrees QTc Int : 470 ms SINUS TACHYCARDIA POSSIBLE LEFT ATRIAL ENLARGEMENT ABNORMAL ECG Confirmed by MD MIRYAM, JOSEP ([id number]) on 12/30/2017 1:46:55 PM Referred By: Confirmed By:JOSEP WITT MD
[2017-12-30 15:02] LABS: BASO % 0.9 % (0-2.0); EOS % 1.6 % (0-4.5); HEMATOCRIT 38.7 % (32.4-45.2); HEMOGLOBIN 12.3 GM/dL (10.7-15.3); LYMPH % 4.2 % (8-40); MCH 25.8 pg (25.7-33.7); MCHC 31.8 g/dl (32.0-36.0); MEAN CELL VOLUME 81.2 fl (80-96); MEAN PLT VOLUME 9.6 fl (7.5-11.1); MONO % 3.6 % (3.8-10.2); NEUT % 89.7 % (42.8-82.8); PLATELET COUNT 307 K/MM3 (134-434); RBC 4.77 M/mm3 (3.60-5.2); WHITE BLOOD COUNT 15.6 K/mm3 (4.0-10.0)
[2017-12-30] MEDS ORDERED: PT OWN MED DRAWER 7, Y5N ONE ×2 (15:10→21:06)
--- NOTE | 2017-12-30 15:30 | CONSULT ---
Consultation: REQUESTING PROVIDER: Dr. Woods CONSULT REQUEST: We have been asked to medically evaluate this patient for shortness of breath. HISTORY OF PRESENT ILLNESS: 62 year old female with a past medical history of Asthma, interstitial lung disease, pulmonary hypertension, who presented to the hospital with increased shortness of breath and hypoxemia (80s), taken from her home O2 saturation device. Associated symptoms include cough with yellow/pink sputum production. She recently visited her pulmonary doctor who prescribed her carvedilol due to her findings of tachycardia. She has been experiencing these symptoms since starting new medication. Since admission symptoms have improved with stopping BB, bronchodilators, oxygen therapy and diuretics. REVIEW OF SYSTEMS: CONSTITUTIONAL: Absent: fever, chills, diaphoresis, generalized weakness, malaise, loss of appetite, weight change HEENT: Absent: rhinorrhea, nasal congestion, throat pain, throat swelling, difficulty swallowing, mouth swelling, ear pain, eye pain, visual changes CARDIOVASCULAR: Positive:peripheral edema Absent: chest pain, syncope, palpitations, irregular heart rate, lightheadedness , RESPIRATORY: Positive:cough, shortness of breath, dyspnea with exertion,wheezing,hemoptysis Absent: orthopnea, , stridor, GASTROINTESTINAL: Absent: abdominal pain, abdominal distension, nausea, vomiting, diarrhea, constipation, melena, hematochezia GENITOURINARY: Absent: dysuria, frequency, urgency, hesitancy, hematuria, flank pain, genital pain MUSCULOSKELETAL: Absent: myalgia, arthralgia, joint swelling, back pain, neck pain SKIN: Absent: rash, itching, pallor HEMATOLOGIC/IMMUNOLOGIC: Absent: easy bleeding, easy bruising, lymphadenopathy, frequent infections ENDOCRINE: Absent: unexplained weight gain, unexplained weight loss, heat intolerance, cold intolerance NEUROLOGIC: Absent: headache, focal weakness or paresthesias, dizziness, unsteady gait, seizure, mental status changes, bladder or bowel incontinence PSYCHIATRIC: Absent: anxiety, depression, suicidal or homicidal ideation, hallucinations. PHYSICAL EXAMINATION Vital Signs - 24 hr 12/29/17 12/30/17 12/30/17 23:30 00:24 00:42 Temperature 97.7 F 98.9 F Pulse Rate 102 H Pulse Rate [ Left Radial] Respiratory 20 Rate Blood Pressure 110/71 Blood Pressure [Left Arm] O2 Sat by Pulse 100 100 Oximetry (%) 12/30/17 12/30/17 12/30/17 03:43 06:33 07:00 Temperature 99.9 F H Pulse Rate Pulse Rate [ 96 H Left Radial] Respiratory 22 Rate Blood Pressure Blood Pressure 108/66 [Left Arm] O2 Sat by Pulse 94 L 94 L 96 Oximetry (%) 12/30/17 12/30/17 12/30/17 08:12 11:10 13:00 Temperature 98.9 F Pulse Rate 95 H Pulse Rate [ Left Radial] Respiratory 20 Rate Blood Pressure 107/54 Blood Pressure [Left Arm] O2 Sat by Pulse 98 98 Oximetry (%) 12/30/17 13:39 Temperature 98.6 F Pulse Rate 119 H Pulse Rate [ Left Radial] Respiratory 20 Rate Blood Pressure 136/79 Blood Pressure [Left Arm] O2 Sat by Pulse Oximetry (%) GENERAL: Awake, alert, and fully oriented, in no acute distress. HEAD: Normal with no signs of trauma. LUNGS: bilateral mild crackles at lung bases; no wheezing, rhonchi or accessory muscle use HEART: Regular rate and rhythm, normal S1 and S2 without murmur, rub or gallop. ABDOMEN: Soft, nontender, not distended, normoactive bowel sounds, no guarding, no rebound, no masses. No hepatomegaly or splenomegaly. MUSCULOSKELETAL: Normal range of motion at all joints. No bony deformities or tenderness. No CVA tenderness. UPPER EXTREMITIES: 2+ pulses, warm, well-perfused. No cyanosis. No clubbing. Cap refill <2 seconds. No peripheral edema. LOWER EXTREMITIES: 2+ pulses, warm, well-perfused. No calf tenderness. 1+ peripheral edema b/l. NEUROLOGICAL: Cranial nerves II-XII intact. Normal speech. PSYCHIATRIC: Cooperative. Good eye contact. Appropriate mood and affect. SKIN: Warm, dry, normal turgor, no rashes or lesions noted. Laboratory Results - last 24 hr 12/30/17 12/30/17 12/30/17 00:56 00:56 00:56 WBC 15.0 H D RBC 4.82 Hgb 12.3 Hct 39.1 MCV 81.2 MCH 25.5 L MCHC 31.4 L RDW 15.0 Plt Count 326 D MPV 9.1 Neutrophils % 80.3 Lymphocytes % 8.7 D Monocytes % 7.1 D Eosinophils % 3.1 D Basophils % 0.8 PT with INR 11.70 INR 1.04 PTT (Actin FS) 29.6 Sodium 143 Potassium 3.9 Chloride 107 Carbon Dioxide 27 Anion Gap 9 BUN 7 Creatinine 0.7 Creat Clearance w eGFR > 60 Random Glucose 171 H Calcium 8.5 Total Bilirubin 0.4 AST 12 L ALT 19 Alkaline Phosphatase 93 Creatine Kinase Troponin I B-Natriuretic Peptide Total Protein 6.1 L Albumin 3.0 L 12/30/17 12/30/17 12/30/17 00:56 12:35 14:45 WBC 15.6 H RBC 4.77 Hgb 12.3 Hct 38.7 MCV 81.2 MCH 25.8 MCHC 31.8 L RDW 15.0 Plt Count 307 MPV 9.6 Neutrophils % 89.7 H Lymphocytes % 4.2 L D Monocytes % 3.6 L Eosinophils % 1.6 Basophils % 0.9 PT with INR INR PTT (Actin FS) Sodium 143 Potassium 3.8 Chloride 105 Carbon Dioxide 26 Anion Gap 12 BUN 6 L Creatinine 0.8 Creat Clearance w eGFR Random Glucose 133 H Calcium 8.9 Total Bilirubin AST ALT Alkaline Phosphatase Creatine Kinase 69 Troponin I 0.02 B-Natriuretic Peptide 1297.16 H Total Protein Albumin Active Medications Generic Name Dose Route Start Last Admin Trade Name Freq PRN Reason Stop Dose Admin Albuterol/Ipratropium 1 amp 12/30/17 11:14 12/30/17 11:45 Duoneb - NEB 1 amp Q4H PRN Administration SHORTNESS OF BREATH Diltiazem HCl 30 mg 12/30/17 14:00 Cardizem - PO TID ISMAEL Docusate Sodium 100 mg 12/30/17 11:15 12/30/17 12:52 Colace - PO 100 mg BID ISMAEL Administration Furosemide 40 mg 12/30/17 15:00 Lasix Injection - IVPUSH DAILY ISMAEL Methylprednisolone Sodium Succinate 40 mg 12/30/17 11:15 12/30/17 12:51 Solu-Medrol - IVPUSH 40 mg Q6H-IV ISMAEL Administration Pantoprazole Sodium 40 mg 12/30/17 11:30 12/30/17 12:51 Protonix Packets For Oral Suspension - NGT 40 mg DAILY ISMAEL Administration Pregabalin 75 mg 12/30/17 11:30 12/30/17 13:21 Lyrica - PO 01/01/18 22:01 Not Given BID ISMAEL ASSESSMENT/PLAN: This is a 62 year old female with a past medical history of pulmonary hypertension, asthma, interstitial lung disease who presented with shortness of breath. Improvement of symptoms and imaging after lasix. Cardiomegaly with edema and elevated bnp on admission. Most probable etiology is high output cardaic failure due to to tachycardia, may have provoked episode of acute heart failure. Acute exacerbation of heart failure acute hypoxic respiratory failure hx of asthma hx of interstitial lung disease hx of pulm HTN -40 IVP lasix qd -f/u echocardiogram -f/u CXR -continue duonebs prn -keep o2 sat >90 -monitor off antibiotics Dispo: We will continue to follow the patient. Thank you for this consultative opportunity. <Moni Morataya - Last Filed: 12/30/17 15:30> Consultation: REQUESTING PROVIDER: CONSULT REQUEST: We have been asked to medically evaluate this patient for ( specify). HISTORY OF PRESENT ILLNESS: REVIEW OF SYSTEMS: CONSTITUTIONAL: Absent: fever, chills, diaphoresis, generalized weakness, malaise, loss of appetite, weight change HEENT: Absent: rhinorrhea, nasal congestion, throat pain, throat swelling, difficulty swallowing, mouth swelling, ear pain, eye pain, visual changes CARDIOVASCULAR: Absent: chest pain, syncope, palpitations, irregular heart rate, lightheadedness , peripheral edema RESPIRATORY: Absent: cough, shortness of breath, dyspnea with exertion, orthopnea, wheezing, stridor, hemoptysis GASTROINTESTINAL: Absent: abdominal pain, abdominal distension, nausea, vomiting, diarrhea, constipation, melena, hematochezia GENITOURINARY: Absent: dysuria, frequency, urgency, hesitancy, hematuria, flank pain, genital pain MUSCULOSKELETAL: Absent: myalgia, arthralgia, joint swelling, back pain, neck pain SKIN: Absent: rash, itching, pallor HEMATOLOGIC/IMMUNOLOGIC: Absent: easy bleeding, easy bruising, lymphadenopathy, frequent infections ENDOCRINE: Absent: unexplained weight gain, unexplained weight loss, heat intolerance, cold intolerance NEUROLOGIC: Absent: headache, focal weakness or paresthesias, dizziness, unsteady gait, seizure, mental status changes, bladder or bowel incontinence PSYCHIATRIC: Absent: anxiety, depression, suicidal or homicidal ideation, hallucinations. PHYSICAL EXAMINATION Vital Signs - 24 hr 12/29/17 12/30/17 12/30/17 23:30 00:24 00:42 Temperature 97.7 F 98.9 F Pulse Rate 102 H Pulse Rate [ Left Radial] Respiratory 20 Rate Blood Pressure 110/71 Blood Pressure [Left Arm] O2 Sat by Pulse 100 100 Oximetry (%) 12/30/17 12/30/17 12/30/17 03:43 06:33 07:00 Temperature 99.9 F H Pulse Rate Pulse Rate [ 96 H Left Radial] Respiratory 22 Rate Blood Pressure Blood Pressure 108/66 [Left Arm] O2 Sat by Pulse 94 L 94 L 96 Oximetry (%) 12/30/17 12/30/17 12/30/17 08:12 11:10 13:00 Temperature 98.9 F Pulse Rate 95 H Pulse Rate [ Left Radial] Respiratory 20 Rate Blood Pressure 107/54 Blood Pressure [Left Arm] O2 Sat by Pulse 98 98 Oximetry (%) 12/30/17 13:39 Temperature 98.6 F Pulse Rate 119 H Pulse Rate [ Left Radial] Respiratory 20 Rate Blood Pressure 136/79 Blood Pressure [Left Arm] O2 Sat by Pulse Oximetry (%) GENERAL: Awake, alert, and fully oriented, in no acute distress. HEAD: Normal with no signs of trauma. EYES: Pupils equal, round and reactive to light, extraocular movements intact, sclera anicteric, conjunctiva clear. No lid lag. EARS, NOSE, THROAT: Ears normal, nares patent, oropharynx clear without exudates. Moist mucous membranes. NECK: Normal range of motion, supple without lymphadenopathy, JVD, or masses. LUNGS: Breath sounds equal, clear to auscultation bilaterally. No wheezes, and no crackles. No accessory muscle use. HEART: Regular rate and rhythm, normal S1 and S2 without murmur, rub or gallop. ABDOMEN: Soft, nontender, not distended, normoactive bowel sounds, no guarding, no rebound, no masses. No hepatomegaly or splenomegaly. MUSCULOSKELETAL: Normal range of motion at all joints. No bony deformities or tenderness. No CVA tenderness. UPPER EXTREMITIES: 2+ pulses, warm, well-perfused. No cyanosis. No clubbing. Cap refill <2 seconds. No peripheral edema. LOWER EXTREMITIES: 2+ pulses, warm, well-perfused. No calf tenderness. No peripheral edema. NEUROLOGICAL: Cranial nerves II-XII intact. Normal speech. Normal gait. PSYCHIATRIC: Cooperative. Good eye contact. Appropriate mood and affect. SKIN: Warm, dry, normal turgor, no rashes or lesions noted. Laboratory Results - last 24 hr 12/30/17 12/30/17 12/30/17 00:56 00:56 00:56 WBC 15.0 H D RBC 4.82 Hgb 12.3 Hct 39.1 MCV 81.2 MCH 25.5 L MCHC 31.4 L RDW 15.0 Plt Count 326 D MPV 9.1 Neutrophils % 80.3 Lymphocytes % 8.7 D Monocytes % 7.1 D Eosinophils % 3.1 D Basophils % 0.8 PT with INR 11.70 INR 1.04 PTT (Actin FS) 29.6 Sodium 143 Potassium 3.9 Chloride 107 Carbon Dioxide 27 Anion Gap 9 BUN 7 Creatinine 0.7 Creat Clearance w eGFR > 60 Random Glucose 171 H Calcium 8.5 Total Bilirubin 0.4 AST 12 L ALT 19 Alkaline Phosphatase 93 Creatine Kinase Troponin I B-Natriuretic Peptide Total Protein 6.1 L Albumin 3.0 L 12/30/17 12/30/17 12/30/17 00:56 12:35 14:45 WBC 15.6 H RBC 4.77 Hgb 12.3 Hct 38.7 MCV 81.2 MCH 25.8 MCHC 31.8 L RDW 15.0 Plt Count 307 MPV 9.6 Neutrophils % 89.7 H Lymphocytes % 4.2 L D Monocytes % 3.6 L Eosinophils % 1.6 Basophils % 0.9 PT with INR INR PTT (Actin FS) Sodium 143 Potassium 3.8 Chloride 105 Carbon Dioxide 26 Anion Gap 12 BUN 6 L Creatinine 0.8 Creat Clearance w eGFR Random Glucose 133 H Calcium 8.9 Total Bilirubin AST ALT Alkaline Phosphatase Creatine Kinase 69 Troponin I 0.02 B-Natriuretic Peptide 1297.16 H Total Protein Albumin Active Medications Generic Name Dose Route Start Last Admin Trade Name Freq PRN Reason Stop Dose Admin Albuterol/Ipratropium 1 amp 12/30/17 11:14 12/30/17 11:45 Duoneb - NEB 1 amp Q4H PRN Administration SHORTNESS OF BREATH Diltiazem HCl 30 mg 12/30/17 14:00 Cardizem - PO TID ISMAEL Docusate Sodium 100 mg 12/30/17 11:15 12/30/17 12:52 Colace - PO 100 mg BID ISMAEL Administration Furosemide 40 mg 12/30/17 15:00 Lasix Injection - IVPUSH DAILY ISMAEL Methylprednisolone Sodium Succinate 40 mg 12/30/17 11:15 12/30/17 15:27 Solu-Medrol - IVPUSH Not Given Q6H-IV ISMAEL Pantoprazole Sodium 40 mg 12/30/17 11:30 12/30/17 12:51 Protonix Packets For Oral Suspension - NGT 40 mg DAILY ISMAEL Administration Pregabalin 75 mg 12/30/17 11:30 12/30/17 13:21 Lyrica - PO 01/01/18 22:01 Not Given BID ISMAEL ASSESSMENT/PLAN: Dispo: We will continue to follow the patient. Thank you for this consultative opportunity. Plan: ECHO: last was in 2016 at [facility], have moderate elevation in RSVP and pericardial effusion. Will try short course of steroids CXR appears more like generalized increase in vascular congestion with no definitive infiltrate: will order Lasix Daily Supplemental O2 to maintain saturation. CPAP has been ordered to address OSAS, but can change to NIPPV to support her if needed Will follow closely Thank you. Dr Alanis <Delon Alanis - Last Filed: 12/30/17 16:02> Problem List - Problems (1) Acute and chronic respiratory failure with hypoxia Code(s): J96.21 - ACUTE AND CHRONIC RESPIRATORY FAILURE WITH HYPOXIA (2) Acute asthma exacerbation Code(s): J45.901 - UNSPECIFIED ASTHMA WITH (ACUTE) EXACERBATION QualifierTitle: Asthma severity: moderate persistent Qualified Code(s): J45.41 - Moderate persistent asthma with (acute) exacerbation (3) Acute respiratory failure Code(s): J96.00 - ACUTE RESPIRATORY FAILURE, UNSP W HYPOXIA OR HYPERCAPNIA (4) Asthma Code(s): J45.909 - UNSPECIFIED ASTHMA, UNCOMPLICATED (5) CHF (congestive heart failure) Code(s): I50.9 - HEART FAILURE, UNSPECIFIED QualifierTitle: Congestive heart failure type: unspecified congestive heart failure type Congestive heart failure chronicity: acute on chronic Qualified Code(s): I50.9 - Heart failure, unspecified (6) Chronic respiratory failure with hypoxia Code(s): J96.11 - CHRONIC RESPIRATORY FAILURE WITH HYPOXIA (7) Cough Code(s): R05 - COUGH (8) Dyspnea Code(s): R06.00 - DYSPNEA, UNSPECIFIED QualifierTitle: Dyspnea type: shortness of breath Qualified Code(s): R06.02 - Shortness of breath (9) Interstitial lung disease due to connective tissue disease Code(s): M35.8 - OTHER SPECIFIED SYSTEMIC INVOLVEMENT OF CONNECTIVE TISSUE; J84.89 - OTHER SPECIFIED INTERSTITIAL PULMONARY DISEASES (10) Pulmonary hypertension Code(s): I27.2 - OTHER SECONDARY PULMONARY HYPERTENSION * DO NOT USE * <Moni Morataya - Last Filed: 12/30/17 15:30> Visit type - Emergency Visit Emergency Visit: Yes ED Registration Date: 12/30/17 Care time: The patient presented to the Emergency Department on the above date and was hospitalized for further evaluation of their emergent condition. - New Patient This patient is new to me today: Yes Date on this admission: 12/30/17 - Critical Care Critical Care patient: No <Moni Morataya - Last Filed: 12/30/17 15:30>
[2017-12-30] MEDS: FUROSEMIDE 40 MG/4 ML INJECTABLE VIAL IVPUSH SCH ×2 (16:22→17:41)
[2017-12-30] MEDS: dilTIAZem HCL 30 MG TABLET (FP) PO SCH ×2 (17:41→21:18)
[2017-12-31] MEDS: methylPREDNISolone NA SUCC 40 MG/1 ML VIAL IVPUSH SCH ×2 (02:48→11:43)
[2017-12-31] MEDS: dilTIAZem HCL 30 MG TABLET (FP) PO SCH ×3 (06:32→21:20)
[2017-12-31 09:35] LABS: MAGNESIUM 2.2 mg/dL (1.8-2.4); PHOSPHOROUS 4.2 mg/dL (2.5-4.9)
--- NOTE | 2017-12-31 11:09 | PN ---
Progress Note (short form) - Note Progress Note: sitting in chair / comfortable O2 in place noted episode of Low Bp (asymptomatic) with diltiazem but HR well controlled Vital Signs Period Temp Pulse Resp BP Sys/Novak Pulse Ox Last 24 Hr 98.2 F-98.6 F 73-119 18-20 96-139/54-79 94-[address] NAD speaks in full sentences Neck supple heart S1/S2 Lungs improved BS / crackles diffusely ( baseline) abd soft non tender ext trace edema CBC, BMP 12/30/17 14:45 12/30/17 12:35 saturation 96% during time of exam Microbiology 12/30/17 00:56 Nasopharyngeal Swab Influenza Types A,B Antigen (OSMIN) - Final 12/30/17 00:56 Nasopharyngeal Swab - Final Active Medications Albuterol/Ipratropium (Duoneb -) 1 amp NEB Q4H PRN PRN Reason: SHORTNESS OF BREATH Last Admin: 12/30/17 11:45 Dose: 1 amp Diltiazem HCl (Cardizem -) 30 mg PO TID [facility] Last Admin: 12/31/17 06:32 Dose: 30 mg Docusate Sodium (Colace -) 100 mg PO BID [facility] Last Admin: 12/30/17 21:19 Dose: 100 mg Gabapentin (Neurontin -) 100 mg PO BID [facility] Pantoprazole Sodium (Protonix Packets For Oral Suspension -) 40 mg NGT DAILY [facility] Last Admin: 12/30/17 12:51 Dose: 40 mg # acute exacerbation of ILD / Asthma 2/2 to Coreg? --treated for sinus tachycardia Off meds / Iv steroids with good response will change to PO in am # sinus Tachycardia tolerating diltiazem monitor Bp / Hr if remains stable may be able to D/c on current dose of diltiazem and current meds if symptomatic may need to decrease dose of CCB. continue to monitor Problem List - Problems (1) Dyspnea Code(s): R06.00 - DYSPNEA, UNSPECIFIED Qualifiers: Dyspnea type: shortness of breath Qualified Code(s): R06.02 - Shortness of breath (2) Hypoxia Code(s): R09.02 - HYPOXEMIA (3) Interstitial lung disease due to connective tissue disease Code(s): M35.8 - OTHER SPECIFIED SYSTEMIC INVOLVEMENT OF CONNECTIVE TISSUE; J84.89 - OTHER SPECIFIED INTERSTITIAL PULMONARY DISEASES (4) Morbid obesity due to excess calories Code(s): E66.01 - MORBID (SEVERE) OBESITY DUE TO EXCESS CALORIES (5) Pulmonary hypertension Code(s): I27.2 - OTHER SECONDARY PULMONARY HYPERTENSION * DO NOT USE * (6) Shortness of breath Code(s): R06.02 - SHORTNESS OF BREATH
[2017-12-31 11:30] LABS: BASO % 0.4 % (0-2.0); EOS % 0.3 % (0-4.5); HEMATOCRIT 42.6 % (32.4-45.2); HEMOGLOBIN 13.3 GM/dL (10.7-15.3); LYMPH % 4.5 % (8-40); MCH 25.2 pg (25.7-33.7); MCHC 31.2 g/dl (32.0-36.0); MEAN CELL VOLUME 80.9 fl (80-96); MEAN PLT VOLUME 9.7 fl (7.5-11.1); MONO % 0.9 % (3.8-10.2); NEUT % 93.9 % (42.8-82.8); PLATELET COUNT 358 K/MM3 (134-434); RBC 5.26 M/mm3 (3.60-5.2)
[2017-12-31] MEDS: PANTOPRAZOLE SOD 40 MG SUSPENSION PACKET NGT SCH (11:38)
[2017-12-31] MEDS: DOCUSATE SODIUM 100 MG CAPSULE (FP) PO SCH ×2 (11:38→21:21)
[2017-12-31] MEDS: GABAPENTIN 100 MG CAPSULE (FP) PO SCH ×2 (11:38→21:21)
[2017-12-31] MEDS: FUROSEMIDE 40 MG/4 ML INJECTABLE VIAL IVPUSH SCH (11:43)
[2017-12-31] MEDS: PREGABALIN 75 MG CAPSULE PO SCH (11:43)
[2017-12-31] MEDS: ALBUTEROL SO4 2.5/IPRATROPIUM 0.5 INH SOL 3 ML VIAL.NEB. NEB SCH ×3 (11:50→21:08)
[2017-12-31 11:53] LABS: ANION GAP 18 (8-16); BLOOD UREA NITROGEN 12 mg/dL (7-18); CALCIUM 9.2 mg/dL (8.5-10.1); CHLORIDE 107 mmol/L (98-107); CO2 18 mmol/L (21-32); CREATININE 0.8 mg/dL (0.55-1.02); GLUCOSE,RANDOM 214 mg/dL (74-106); POTASSIUM 4.4 mmol/L (3.5-5.1); SODIUM 143 mmol/L (136-145)
--- NOTE | 2017-12-31 13:21 | PN ---
Progress Note, Physician Chief Complaint: SUBJECTIVE IMPROVEMENT History of Present Illness: CHART REVIEWED FEELS GREAT WANTS TO GO HOME TOMORROW - Current Medication List Current Medications: Active Medications Albuterol/Ipratropium (Duoneb -) 1 amp NEB Q4H PRN PRN Reason: SHORTNESS OF BREATH Last Admin: 12/30/17 11:45 Dose: 1 amp Albuterol/Ipratropium (Duoneb -) 1 amp NEB RQID [facility] Diltiazem HCl (Cardizem -) 30 mg PO TID [facility] Last Admin: 12/31/17 06:32 Dose: 30 mg Docusate Sodium (Colace -) 100 mg PO BID [facility] Last Admin: 12/31/17 11:38 Dose: 100 mg Gabapentin (Neurontin -) 100 mg PO BID [facility] Last Admin: 12/31/17 11:38 Dose: 100 mg Pantoprazole Sodium (Protonix Packets For Oral Suspension -) 40 mg NGT DAILY [facility] Last Admin: 12/31/17 11:38 Dose: 40 mg Prednisone (Deltasone -) 20 mg PO DAILY [facility] - Objective Vital Signs: Vital Signs Temperature 98.2 F 12/31/17 06:00 Pulse Rate 73 12/31/17 06:00 Respiratory Rate 18 12/31/17 06:00 Blood Pressure 96/58 12/31/17 06:00 O2 Sat by Pulse Oximetry (%) 98 12/31/17 01:00 Constitutional: Yes: Calm, Other HENT: Yes: Normocephalic Neck: Yes: Trachea Midline Cardiovascular: Yes: Regular Rate and Rhythm, S1, S2 Respiratory: Yes: CTA Bilaterally Gastrointestinal: Yes: Abdomen, Obese Edema: No Neurological: Yes: Alert Labs: CBC, BMP 12/31/17 11:20 12/31/17 11:20 INR, PTT INR 1.04 (0.82-1.09) 12/30/17 00:56 - ....Imaging Chest X-ray: Report Reviewed, Image Reviewed EKG: Report Reviewed, Image Reviewed Other: Report Reviewed, Image Reviewed (ECHO) Assessment/Plan (1) Acute and chronic respiratory failure with hypoxia Code(s): J96.21 - ACUTE AND CHRONIC RESPIRATORY FAILURE WITH HYPOXIA (2) Acute asthma exacerbation Code(s): J45.901 - UNSPECIFIED ASTHMA WITH (ACUTE) EXACERBATION QualifierTitle: Asthma severity: moderate persistent Qualified Code(s): J45.41 - Moderate persistent asthma with (acute) exacerbation (3) Acute respiratory failure Code(s): J96.00 - ACUTE RESPIRATORY FAILURE, UNSP W HYPOXIA OR HYPERCAPNIA (4) Asthma Code(s): J45.909 - UNSPECIFIED ASTHMA, UNCOMPLICATED (5) CHF (congestive heart failure) Code(s): I50.9 - HEART FAILURE, UNSPECIFIED QualifierTitle: Congestive heart failure type: unspecified congestive heart failure type Congestive heart failure chronicity: acute on chronic Qualified Code(s): I50.9 - Heart failure, unspecified (6) Chronic respiratory failure with hypoxia Code(s): J96.11 - CHRONIC RESPIRATORY FAILURE WITH HYPOXIA (7) Cough Code(s): R05 - COUGH (8) Dyspnea Code(s): R06.00 - DYSPNEA, UNSPECIFIED QualifierTitle: Dyspnea type: shortness of breath Qualified Code(s): R06.02 - Shortness of breath (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
[2017-12-31] MEDS ORDERED: PT OWN MED DRAWER 7, Y5N ONE (13:48)
[2018-01-01] MEDS: dilTIAZem HCL 30 MG TABLET (FP) PO SCH (06:26)
[2018-01-01 06:49] VITALS: TEMP 98
[2018-01-01] MEDS: ALBUTEROL SO4 2.5/IPRATROPIUM 0.5 INH SOL 3 ML VIAL.NEB. NEB SCH (07:31)
--- NOTE | 2018-01-01 08:36 | DS ---
Physical Examination Vital Signs: Vital Signs Temperature 98.0 F 01/01/18 06:47 Pulse Rate 80 01/01/18 06:47 Respiratory Rate 20 01/01/18 06:47 Blood Pressure 104/56 01/01/18 06:47 O2 Sat by Pulse Oximetry (%) 98 12/31/17 01:00 Findings/Remarks: 61yo F with a PMHx of Interstitial Lung disease (on 2L home O2 continuously), Pulmonary HTN, dCHF, ASIYA who presents w/ gradual onset shortness of breath. She follows with [facility] (Dr Maya) for her ILD and has been tx with DMARS and being tapered off chronic steroids (currently on Prednisone 2.5 daily). She was seen by Dr Maya two weeks ago, who noted that her heart rate was tachycardic, and started her on Carvedilol. Since taking Carvedilol, she noticed progressively worsening shortness of breath. She checked her pulse ox and noted it to be in the 80s. She called Dr Maya's office this morning, and was advised to discontinue the Carvedilol, but still felt SOB. Endorses 1 day of productive cough. Denies fevers, chills, CP. Denies increasing orthopnea or leg swelling. Denies sick contacts. Upon arriving to the ER, patients pulse Ox was low 80s. Placed on nonrebreather 15L, with sats at 100% Pulmonary - Dr Tamera Joe ([place]) PMD - Dr. Woods SH - Never smoker, no alcohol, no drugs hospital stay --started on IV steroids / d/c coreg / continued neb tx patient back to baseline within 24 hrs of hospital stay PO Steroids resumed - and CCB used for contoll of sinus tachycardia, both well tolerated will d/c home on current medications Constitutional: Yes: Well Nourished, No Distress, Calm Eyes: Yes: Conjunctiva Clear, EOM Intact HENT: Yes: Atraumatic, Normocephalic Neck: Yes: Supple, Trachea Midline Cardiovascular: Yes: Regular Rate and Rhythm Respiratory: Yes: Diminished, Rhonchi Gastrointestinal: Yes: Normal Bowel Sounds, Soft, Abdomen, Obese ...Rectal Exam: Yes: Deferred Breast(s): Yes: WNL, Discharge from Nipple Musculoskeletal: Yes: Back Pain, Muscle Weakness Extremities: Yes: WNL Edema: No Peripheral Pulses: Left Radial: 2+, Right Radial: 2+, Left Doralis Pedis: 2+, Right Dorsalis Pedis: 2+, Left Femoral: 2+, Right Femoral: 2+ Integumentary: Yes: WNL Neurological: Yes: WNL, Alert, Oriented ...Motor Strength: WNL Psychiatric: Yes: Alert Labs: CBC, BMP 12/31/17 11:20 12/31/17 11:20 Discharge Summary Reason For Visit: ACUTE ON CHRONIC RESPIRATORY FAILURE WITH HYPOXIA Current Active Problems Acute and chronic respiratory failure with hypoxia (Acute) Condition: Good - Instructions Referrals: Oma Woods MD [Primary Care Provider] - Disposition: HOME - Home Medications Comprehensive Discharge Medication List: Ambulatory Orders Cetirizine HCl [Zyrtec -] 5 mg PO DAILY PRN 02/15/16 Aspirin Coated [Ecotrin -] 81 mg PO DAILY #30 tablet.ec 02/18/16 Esomeprazole Magnesium [Nexium 24Hr] 20 mg PO DAILY PRN 05/12/17 Furosemide [Lasix -] 40 mg PO Q2D 05/12/17 Fluticasone Prop 0.05% Nasal [Flonase -] 2 spray NS DAILY spray 05/15/17 Gabapentin [Neurontin -] 100 mg PO Q8H PRN 12/29/17 Prednisone [Deltasone -] 2.5 mg PO DAILY 12/30/17 Albuterol 2.5/Ipratropium 0.5 [Duoneb -] 1 amp NEB RQID amp 01/01/18 Diltiazem [Cardizem -] 30 mg PO TID 30 Days #90 tablet 01/01/18 Docusate Sodium [Colace -] 100 mg PO BID capsule 01/01/18 Gabapentin [Neurontin -] 100 mg PO BID capsule 01/01/18
[2018-01-01 08:57] VITALS: BP 98/58; PULSE 90
[2018-01-01] MEDS: PANTOPRAZOLE SOD 40 MG SUSPENSION PACKET NGT SCH (09:13)
[2018-01-01] MEDS: DOCUSATE SODIUM 100 MG CAPSULE (FP) PO SCH (09:13)
[2018-01-01] MEDS: GABAPENTIN 100 MG CAPSULE (FP) PO SCH (09:13)
[2018-01-01] MEDS ORDERED: predniSONE 20 MG TABLET (UD) PO SCH (10:00)
== END 2018-01-01 10:04 | disposition home or self-care (01) | DRG 189 ==
LOC: JER 23:02 → JERBED 12-30 02:30 → J7W 12-30 11:13
PROVIDERS: ADMIT Family Medicine; ATTEND Family Medicine
PROC: 5A09457 Assistance with Respiratory Ventilation, 24-96 Consecutive Hours, Continuous Positive Airway Pressure (ICD-10-PCS; principal; 2017-12-30)
DX: J96.21 Acute and chronic respiratory failure with hypoxia (principal); J45.41 Moderate persistent asthma with (acute) exacerbation; Z68.41 Body mass index [BMI] 40.0-44.9, adult; I27.20 Pulmonary hypertension, unspecified; G47.33 Obstructive sleep apnea (adult) (pediatric); J84.89 Other specified interstitial pulmonary diseases; E78.00 Pure hypercholesterolemia, unspecified; G43.809 Other migraine, not intractable, without status migrainosus; M54.5 Low back pain; M79.7 Fibromyalgia; M06.80 Other specified rheumatoid arthritis, unspecified site; M19.90 Unspecified osteoarthritis, unspecified site; E66.01 Morbid (severe) obesity due to excess calories; R05 Cough; R00.0 Tachycardia, unspecified; I50.9 Heart failure, unspecified; Z99.81 Dependence on supplemental oxygen
CPT/HCPCS: 36415; 71045-TC; 71046-TC-FY; 80048; 80053; 82550; 83735; 83880; 84100; 84484; 85025; 85610; 85730; 87804; 93005; 93010; 93306-TC; 94640; 94660; 97116-GP; 97161-GP; 99283-25

== ENCOUNTER 2019-02-15 14:09 | Inpatient (IN) | payer OTHER ==
--- NOTE | 2019-02-15 14:33 | PDOC ---
Rapid Medical Evaluation Chief Complaint: Shortness of Breath Time Seen by Provider: 02/15/19 14:31 Medical Evaluation: Allergies Allergy/AdvReac Type Severity Reaction Status Date / Time Penicillins Allergy Verified 02/15/19 14:31 tomatoes Allergy Uncoded 02/15/19 14:31 02/15/19 14:31 I have performed a brief in-person evaluation of this patient. The patient presents with a chief compliant of shortness of breath x 1 week. Chronic lung disease with home oxygen use. Productive coughing with yellowish phlegm in the am Pertinent physical exam findings NAD unable to deep breathing without coughing heart s1s2 I have ordered the following chest xray The patient will proceed to the ED for further evaluation. Discharge Disposition - Diagnosis Shortness of breath - Referrals - Patient Instructions - Post Discharge Activity
[2019-02-15 16:32] LABS: HEMATOCRIT 40.2 % (32.4-45.2); HEMOGLOBIN 13.4 GM/dL (10.7-15.3); LYMPH % 9.3 % (8-40); MCH 27.9 pg (25.7-33.7); MCHC 33.4 g/dl (32.0-36.0); MEAN CELL VOLUME 83.7 fl (80-96); MEAN PLT VOLUME 8.4 fl (7.5-11.1); MONO % 6.3 % (3.8-10.2); NEUT % 81.4 % (42.8-82.8); PLATELET COUNT 245 K/MM3 (134-434); RBC 4.79 M/mm3 (3.60-5.2); RDW 17.1 % (11.6-15.6); WHITE BLOOD COUNT 10.8 K/mm3 (4.0-10.0)
--- NOTE | 2019-02-15 16:32 | PDOC ---
History of Present Illness - General Chief Complaint: Shortness of Breath Stated Complaint: SOB Time Seen by Provider: 02/15/19 14:31 History Source: Patient Exam Limitations: No Limitations - History of Present Illness Initial Comments: 02/15/19 16:27 Pt is a 63yo F with PMH of ILD (2L home O2), CHF, ASIYA, Pulmonary HTN presenting to ED with 1 week of worsening SOB with exertion. Pt saw her receptionist 3 days ago and was given a zpack but she still feels short of breath. She endorses cough productive of yellow sputum which becomes clear throughout the day, congestion. Denies fever, chills, chest pain, pleuritic chest pain, leg swelling, recent travel, recent surgery, hemoptysis, syncope, palpitations, abdominal pain, n/v/d. PMD: Peggy Pulm: Zulma PMH: see hpi PSH: cholecystectomy Allergies: pcn Social: denies Past History - Past Medical History Allergies/Adverse Reactions: Allergies Allergy/AdvReac Type Severity Reaction Status Date / Time Penicillins Allergy Verified 02/15/19 14:31 tomatoes Allergy Uncoded 02/15/19 14:31 Home Medications: Ambulatory Orders Cetirizine HCl [Zyrtec -] 5 mg PO DAILY PRN 02/15/16 Aspirin Coated [Ecotrin -] 81 mg PO DAILY #30 tablet.ec 02/18/16 Esomeprazole Magnesium [Nexium 24Hr] 20 mg PO DAILY PRN 05/12/17 Fluticasone Prop 0.05% Nasal [Flonase -] 2 spray NS DAILY spray 05/15/17 Albuterol 2.5/Ipratropium 0.5 [Duoneb -] 1 amp NEB RQID amp 01/01/18 Gabapentin 600 mg PO BID 05/15/18 Medical Marijuana [Medical Marijuana Oil] 1 tab PO DAILY 07/17/18 Cyclobenzaprine HCl 5 mg PO DAILY #60 tablet 08/17/18 Glutamine [l-Glutamine] 500 mg PO HS #120 capsule MDD 2 09/24/18 Montelukast Sodium [Singulair] 10 mg PO DAILY 02/15/19 Asthma: Yes Cancer: No Cardiac Disorders: Yes (tachycardia) COPD: Yes (INTERSTITIAL LUNG DISEASE) CHF: No Diabetes: Yes (prednisone related) HTN: No Hypercholesterolemia: Yes Liver Disease: No Seizures: No Thyroid Disease: No - Surgical History Cholecystectomy: Yes (2009) - Immunization History Immunization Up to Date: Yes - Suicide/Smoking/Psychosocial Hx Smoking History: Never smoked Have you smoked in the past 12 months: No Number of Cigarettes Smoked Daily: 0 Cigars Per Day: 0 Hx Alcohol Use: No Drug/Substance Use Hx: No Substance Use Type: None Hx Substance Use Treatment: No Review of Systems - Review of Systems Constitutional: No: Chills, Fever, Weakness HEENTM: Yes: Nose Congestion. No: Eye Pain, Double Vision Respiratory: Yes: Cough, SOB with Exertion, Productive cough. No: Hemoptysis Cardiac (ROS): Yes: Palpitations. No: Chest Pain, Lightheadedness, Syncope ABD/GI: No: Constipated, Diarrhea, Nausea, Vomiting, Abdominal cramping : No: Burning, Dysuria Musculoskeletal: No: Back Pain, Joint Pain, Neck Pain Integumentary: No: Symptoms Reported Neurological: No: Headache, Numbness, Tingling *Physical Exam - Vital Signs Last Vital Signs Temp Pulse Resp BP Pulse Ox 98.3 F 101 H 16 98/65 95 02/15/19 14:31 02/15/19 15:57 02/15/19 15:57 02/15/19 15:57 02/15/19 15:57 - Physical Exam General Appearance: Yes: Appropriately Dressed, Obese. No: Apparent Distress HEENT: positive: EOMI, KIMBERLY, Pharynx Normal, Sinus Tenderness Neck: positive: Trachea midline, Supple. negative: Lymphadenopathy (R), Lymphadenopathy (L) Respiratory/Chest: positive: Rhonchi, Other (course breath sounds) Cardiovascular: positive: S1, S2, Tachycardia. negative: Edema, JVD, Murmur Vascular Pulses: Carotid (R): 2+, Carotid (L): 2+, Dorsalis-Pedis (R): 2+, Doralis-Pedis (L): 2+ Gastrointestinal/Abdominal: positive: Normal Bowel Sounds, Soft. negative: Tender Musculoskeletal: negative: CVA Tenderness Extremity: positive: Normal Capillary Refill. negative: Pedal Edema, Swelling, Calf Tenderness Integumentary: positive: Normal Color, Dry, Warm Neurologic: positive: forward air controller/air officer II-XII NML intact, Fully Oriented, Alert, Normal Mood/ Affect, Normal Response, Motor Strength 5/5 Moderate Sedation - Procedure Monitoring Vital Signs: Procedure Monitoring Vital Signs Temperature 98.3 F 02/15/19 14:31 Pulse Rate 101 H 02/15/19 15:57 Respiratory Rate 16 02/15/19 15:57 Blood Pressure 98/65 02/15/19 15:57 O2 Sat by Pulse Oximetry (%) 95 02/15/19 15:57 ED Treatment Course - LABORATORY CBC & Chemistry Diagram: 02/15/19 16:09 02/15/19 16:23 Medical Decision Making - Medical Decision Making 02/15/19 16:31 Pt is a 63yo F with PMH of ILD (2L home O2), CHF, ASIYA, Pulmonary HTN presenting to ED with 1 week of worsening SOB with exertion. Pt saw her receptionist 3 days ago and was given a zpack but she still feels short of breath. She endorses cough productive of yellow sputum which becomes clear throughout the day, congestion. Denies fever, chills, chest pain, pleuritic chest pain, leg swelling, recent travel, recent surgery, hemoptysis, syncope, palpitations, abdominal pain, n/v/d. Vitals: tachycardia, saturating in mid to high 90s on RA PE: coarse breath sounds Ddx includes but not limited to ACS, PE, PTX, PNA, CHF, COPD, pneumonitis, carditis -cbc, cmp, bnp, trop, coags -ekg, cxr, CTA -IV tylenol, solumedrol Labs significant for Trop 0.08, bnp 5900 pt not complaining of chest pain. speaks about 5 words and feels sob. CTA negative for pe. shows hilar lymphadenopathy, increased pulm aa diameter ( pulm htn). EKG- sinus tachycardia, RAD, deep S in I, Q in III. unchanged from prior Pt still not having chest pain. Will admit for sob, pulm htn elevated bnp and trop could be due to demand or pulmonary htn 02/16/19 00:46 *DC/Admit/Observation/Transfer Diagnosis at time of Disposition: Shortness of breath, Interstitial lung disease, Hilar lymphadenopathy - Discharge Dispostion Condition at time of disposition: Good Decision to Admit order: Yes - Referrals - Patient Instructions - Post Discharge Activity
[2019-02-15 16:57] LABS: INR 1.16 (0.83-1.09); PROTHROMBIN TIME (PATIENT) 13.7 SEC (9.7-13.0)
[2019-02-15 17:00] LABS: ACTIVATED PTT 28.5 SECONDS (25.2-36.5)
[2019-02-15 17:10] LABS: ALBUMIN 3.2 g/dl (3.4-5.0); ALK PHOS 82 U/L (45-117); ANION GAP 7 MMOL/L (8-16); BILIRUBIN,TOTAL 0.8 mg/dL (0.2-1); BLOOD UREA NITROGEN 16 mg/dL (7-18); CALCIUM 8.3 mg/dL (8.5-10.1); CHLORIDE 113 mmol/L (98-107); CO2 25 mmol/L (21-32); GLUCOSE,RANDOM 101 mg/dL (74-106); N-TERMINAL BNP 5974.1 pg/ml (5-125); POTASSIUM 4.3 mmol/L (3.5-5.1); SGOT/AST 23 U/L (15-37); SGPT/ALT 21 U/L (13-61); SODIUM 145 mmol/L (136-145); TOT PROT 6.2 g/dl (6.4-8.2)
[2019-02-15] MEDS ORDERED: ACETAMINOPHEN 1000 MG/100 ML VIAL (NON FORMULARY) IVPB ONE (17:47)
[2019-02-15] MEDS ORDERED: ACETAMINOPHEN INJECTION 100 ML IVPB ONE (18:18)
[2019-02-15] MEDS ORDERED: methylPREDNISolone NA SUCC 125 MG/2 ML VIAL IVPUSH ONE (18:38)
--- NOTE | 2019-02-15 18:53 | PDOC ---
Attending Attestation - Resident Resident Name: Palma Sarmiento - ED Attending Attestation I have performed the following: I have examined & evaluated the patient, The case was reviewed & discussed with the resident, I agree w/resident's findings & plan, Exceptions are as noted - HPI HPI: 02/15/19 18:52 The patient is a 63 year old female, with a significant past medical history of asthma, Interstitial Lung disease (2L home O2), CHF, ASIYA, and Pulmonary HTN, who presents to the emergency department with, 1 week of worsening shortness of breath upon exertion, nasal congestion, and productive cough with yellow sputum. Patient notes seeing her engineering technician 3 days ago at which time she was prescribed a z-pack, without relief. She denies recent fevers, chills, headache or dizziness. She denies recent nausea, vomit, diarrhea or constipation. She denies recent dysuria, frequency, urgency or hematuria. She denies recent chest pain. Allergies: Penicillin. Past surgical history: Cholecystectomy. Social history: Nonsmoker. Denies EtOH use and recreational drug use. Primary Care Physician: Dr. Woods Medical Staffing Coordinator - Dr. Tamera Joe ([place]) Last course of Prednisone: 01/2019 - Physicial Exam PE: 02/15/19 18:53 GENERAL: +Speaking in 3-4 word sentences. Awake, alert, and fully oriented, in no acute distress HEAD: No signs of trauma EYES: PERRLA, EOMI, sclera anicteric, conjunctiva clear ENT: Auricles normal inspection, hearing grossly normal, nares patent, oropharynx clear without exudates. Moist mucosa NECK: Normal ROM, supple, no lymphadenopathy, JVD, or masses LUNGS: +Coarse breath sounds on the right. +Saturating 90% on 2L. HEART: Regular rate and rhythm, normal S1 and S2, no murmurs, rubs or gallops ABDOMEN: Soft, nontender, normoactive bowel sounds. No guarding, no rebound. No masses EXTREMITIES: Normal range of motion, no edema. No clubbing or cyanosis. No cords , erythema, or tenderness BACK: No midline spinal tenderness in cervical/thoracic/lumbar region NEUROLOGICAL: Normal speech, cranial nerves intact, negative pronator drift, 5/ 5 strength in all 4 extremities, normal sensation to light touch in all 4 extremities, normal cerebellar exam, normal reflexes and tone SKIN: Warm, Dry, normal turgor, no rashes or lesions noted.
--- NOTE | 2019-02-15 22:09 | HP ---
CHIEF COMPLAINT: shortness of breath on ambulating PCP: DR Woods HISTORY OF PRESENT ILLNESS: Pt is a 63yo F with PMH of ILD (2L home O2), CHF, ASIYA, Pulmonary HTN presenting to ED with 1 week of worsening SOB with exertion and productive cough .Pt saw her conveyor system operator 3 days ago and was given a zpack but she still feels short of breath. She endorses cough productive of yellow sputum which becomes clear throughout the day, congestion. Denies fever, chills, chest pain, pleuritic chest pain, leg swelling, recent travel, recent surgery, hemoptysis, syncope, palpitations, abdominal pain, n/v/D/C. pt reports frontal headache 07/10, pulsating , start on Friday comes and goes. ER course was notable for: (1)cbc, cmp (2)cxr (3)CTA chest negative for PE Recent Travel:denies PAST MEDICAL HISTORY: as per HPI PAST SURGICAL HISTORY: cholecystectomy Social History: Smoking:denies Alcohol:socially Drugs: denies Family History: Significant for Asthma Allergies Penicillins Allergy (Verified 02/15/19 14:31) tomatoes Allergy (Uncoded 02/15/19 14:31) HOME MEDICATIONS: Home Medications Medication Instructions Recorded Cetirizine HCl [Zyrtec -] 5 mg PO DAILY PRN 02/15/16 Aspirin Coated [Ecotrin -] 81 mg PO DAILY #30 tablet.ec 02/18/16 Esomeprazole Magnesium [Nexium 20 mg PO DAILY PRN 05/12/17 24Hr] Fluticasone Prop 0.05% Nasal 2 spray NS DAILY spray 05/15/17 [Flonase -] Albuterol 2.5/Ipratropium 0.5 1 amp NEB RQID amp 01/01/18 [Duoneb -] Gabapentin 600 mg PO BID 05/15/18 Medical Marijuana [Medical 1 tab PO DAILY 07/17/18 Marijuana Oil] Cyclobenzaprine HCl 5 mg PO DAILY #60 tablet 08/17/18 Glutamine [l-Glutamine] 500 mg PO HS #120 capsule MDD 2 09/24/18 Montelukast Sodium [Singulair] 10 mg PO DAILY 02/15/19 REVIEW OF SYSTEMS CONSTITUTIONAL: Absent: fever, chills, diaphoresis, generalized weakness, malaise, loss of appetite, weight change HEENT: Absent: rhinorrhea, nasal congestion, throat pain, throat swelling, difficulty swallowing, mouth swelling, ear pain, eye pain, visual changes CARDIOVASCULAR: Absent: chest pain, syncope, palpitations, irregular heart rate, lightheadedness , peripheral edema RESPIRATORY: Absent: cough, shortness of breath, dyspnea with exertion, orthopnea, wheezing, stridor, hemoptysis GASTROINTESTINAL: Absent: abdominal pain, abdominal distension, nausea, vomiting, diarrhea, constipation, melena, hematochezia GENITOURINARY: Absent: dysuria, frequency, urgency, hesitancy, hematuria, flank pain, genital pain MUSCULOSKELETAL: Absent: myalgia, arthralgia, joint swelling, back pain, neck pain SKIN: Absent: rash, itching, pallor HEMATOLOGIC/IMMUNOLOGIC: Absent: easy bleeding, easy bruising, lymphadenopathy, frequent infections ENDOCRINE: Absent: unexplained weight gain, unexplained weight loss, heat intolerance, cold intolerance NEUROLOGIC: Absent: headache, focal weakness or paresthesias, dizziness, unsteady gait, seizure, mental status changes, bladder or bowel incontinence PSYCHIATRIC: Absent: anxiety, depression, suicidal or homicidal ideation, hallucinations. PHYSICAL EXAMINATION Vital Signs - 24 hr 02/15/19 02/15/19 02/15/19 14:31 15:50 15:57 Temperature 98.3 F Pulse Rate 102 H 72 Pulse Rate [ 101 H Left Apical] Respiratory 16 16 Rate Blood Pressure 100/63 Blood Pressure 98/65 [Left Arm] O2 Sat by Pulse 91 L 95 95 Oximetry (%) 02/15/19 02/15/19 02/15/19 17:01 19:03 21:37 Temperature Pulse Rate Pulse Rate [ 94 H 86 97 H Left Apical] Respiratory 16 16 22 H Rate Blood Pressure Blood Pressure 108/67 96/62 119/74 [Left Arm] O2 Sat by Pulse 97 96 93 L Oximetry (%) 02/15/19 21:38 Temperature Pulse Rate 96 H Pulse Rate [ Left Apical] Respiratory Rate Blood Pressure Blood Pressure [Left Arm] O2 Sat by Pulse 94 L Oximetry (%) GENERAL: AAOx3 in NAD , on O2 NC HEAD: NC/AT EYES: EOMI, Conjunctiva clear, sclera anicteric ENT: moist mucous membrane NECK: Supple, no JVD LUNGS: CTA B/L, no crackles no wheezing no accessory muscle use. HEART: RRR, NSR, normal s1, s2, murmur no M/R/G ABDOMEN: Soft, ND, NT, +BS 4 Q, no CVA Tenderness LOWER EXTREMITIES: trace edema, +2DP pulse, NEUROLOGICAL: No focal deficit. Normal speech. gait not observed. PSYCHIATRIC: Cooperative. Good eye contact. Appropriate mood and affect. SKIN: Warm, dry, Laboratory Results - last 24 hr 02/15/19 02/15/19 02/15/19 15:23 16:09 16:23 WBC 10.8 H RBC 4.79 Hgb 13.4 Hct 40.2 MCV 83.7 MCH 27.9 MCHC 33.4 RDW 17.1 H Plt Count 245 D MPV 8.4 D Absolute Neuts (auto) 8.8 H Neutrophils % 81.4 Lymphocytes % 9.3 D Monocytes % 6.3 D Eosinophils % 2.0 D Basophils % 1.0 Nucleated RBC % 0 PT with INR 13.70 H INR 1.16 H PTT (Actin FS) 28.5 Sodium 145 Potassium 4.3 Chloride 113 H Carbon Dioxide 25 Anion Gap 7 L BUN 16 Creatinine 1.0 Creat Clearance w eGFR 56.37 Random Glucose 101 Calcium 8.3 L Total Bilirubin 0.8 AST 23 ALT 21 Alkaline Phosphatase 82 Troponin I 0.08 H B-Natriuretic Peptide 5974.1 H Total Protein 6.2 L Albumin 3.2 L Influenza A (Rapid) Influenza B (Rapid) 02/15/19 18:25 WBC RBC Hgb Hct MCV MCH MCHC RDW Plt Count MPV Absolute Neuts (auto) Neutrophils % Lymphocytes % Monocytes % Eosinophils % Basophils % Nucleated RBC % PT with INR INR PTT (Actin FS) Sodium Potassium Chloride Carbon Dioxide Anion Gap BUN Creatinine Creat Clearance w eGFR Random Glucose Calcium Total Bilirubin AST ALT Alkaline Phosphatase Troponin I B-Natriuretic Peptide Total Protein Albumin Influenza A (Rapid) Negative Influenza B (Rapid) Negative CBC, BMP 02/15/19 16:09 02/15/19 16:23 Echo: Dec 31 LV normal EF with poor compliance ,mild RV dilated ,normal LA, RA,trace Tricupside regurgitation ,RV P 38 mmhg, small to moderate pericardial effusion. CTA today negative for PE, but worsening pulm HTN , dilated PA 3.5 compare to 3.1 in last CTA , worsening ILD .small pericardial fluids vs non specific thickening. CXR : Large heart , prominent lung marking ASSESSMENT/PLAN: Pt is a 63yo F with PMH of ILD (2L home O2), CHF, ASIYA, Pulmonary HTN presenting to ED with 1 week of worsening SOB with exertion and productive cough admitted for acute asthma exacerbation # Acute Asthma exacerbation #Chronic Hypoxic Respiratory Failure # Pulmonary HTN * CXR with no acute pathology * CTA negative for PE but worsening Pulm HTN and ILD * DUONEB * Albuterol * Solumedrol 40 Q 8hr * urine legionella AG * Singulair 10 mg HS * CPAP 10, Fio2 40, # Elevated trop * peaked at 0.08 likely from demand ischemia due to hypoxia * EKG with NO St, T wave changes # Acute CHF Exacerbation * 40 lasix IV daily PRN , will hold now due to low BP * BNP 5974 * Daily weight * I& O #Rheumatoid Arthritis with Interstitial Lung Disease * cont home meds * o2 @ 2L NS * Solumedrol 40 Q 8hr # OSAS * on CPAP at night # Morbid obesity * educated about life style changes and low calories diet * # Medical marijuana home meds discuss with Detox in AM Dc vs cont # FEN * F: No standing fluids * E: Monitor * N: Low sodium diet # proph * DVTS: hep SQ TID * GI: PPI as pt started on prednisone # Dispo * tele inpatient # Full code Visit type - Emergency Visit Emergency Visit: Yes ED Registration Date: 02/15/19 Care time: The patient presented to the Emergency Department on the above date and was hospitalized for further evaluation of their emergent condition. - New Patient This patient is new to me today: Yes Date on this admission: 02/15/19 - Critical Care Critical Care patient: No
--- NOTE | 2019-02-15 22:19 | PN ---
Teaching Attending Note Name of Resident: Willy Larson ATTENDING PHYSICIAN STATEMENT I saw and evaluated the patient. I reviewed the resident's note and discussed the case with the resident. I agree with the resident's findings and plan as documented. SUBJECTIVE: Patient is a 63 year old woman with PMH of asthma, Penicillin allergy, Interstitial Lung disease (2L home O2), CHF, ASIYA, and Pulmonary HTN, who presents to the ER with, 1 week of worsening shortness of breath upon exertion, nasal congestion, and productive cough with yellow sputum. Patient notes seeing her net coordinator 3 days ago at which time she was prescribed a Z-pack, without relief. She denies recent fevers, chills, headache or dizziness. She denies recent nausea, vomit, diarrhea or constipation. She denies recent dysuria, frequency, urgency or hematuria. OBJECTIVE: Alert Vital Signs Period Temp Pulse Resp BP Sys/Novak Pulse Ox Last 24 Hr 98.3 F 72-102 16-22 96-119/62-74 91-97 HEENT: No Jaundice, eye redness or discharge, PERRLA, EOMI. Normocephalic, atraumatic. External ears are normal and hearing is grossly intact. No nasal discharge. Neck: Supple, nontender. No palpable adenopathy or thyromegaly. No JVD Chest: Good effort. Coarse breath sounds. Clear to percussion. Heart: Regular. No S3, rub or murmur Abdomen: Not distended, soft, nontender and no HSM. No rebound or guarding. Normal bowel sounds. Ext: Peripheral pulses intact. No leg edema. Skin: Warm and dry. No petechiae, rash or ecchymosis. Neuro: Alert. Oriented x3. CN 2-12 grossly intact. Sensation grossly intact in all four extremities and DTR are symmetric. Psych: Appropriate mood and affect. Good insight. Home Medications Medication Instructions Recorded Cetirizine HCl [Zyrtec -] 5 mg PO DAILY PRN 02/15/16 Aspirin Coated [Ecotrin -] 81 mg PO DAILY #30 tablet.ec 02/18/16 Esomeprazole Magnesium [Nexium 20 mg PO DAILY PRN 05/12/17 24Hr] Fluticasone Prop 0.05% Nasal 2 spray NS DAILY spray 05/15/17 [Flonase -] Albuterol 2.5/Ipratropium 0.5 1 amp NEB RQID amp 01/01/18 [Duoneb -] Gabapentin 600 mg PO BID 05/15/18 Medical Marijuana [Medical 1 tab PO DAILY 07/17/18 Marijuana Oil] Cyclobenzaprine HCl 5 mg PO DAILY #60 tablet 08/17/18 Glutamine [l-Glutamine] 500 mg PO HS #120 capsule MDD 2 09/24/18 Montelukast Sodium [Singulair] 10 mg PO DAILY 02/15/19 Abnormal Lab Results 02/15/19 02/15/19 02/15/19 15:23 16:09 16:23 WBC 10.8 H RDW 17.1 H Absolute Neuts (auto) 8.8 H PT with INR 13.70 H INR 1.16 H Chloride 113 H Anion Gap 7 L Calcium 8.3 L Troponin I 0.08 H B-Natriuretic Peptide 5974.1 H Total Protein 6.2 L Albumin 3.2 L ASSESSMENT AND PLAN: 1. Exacerbation of COPD/Interstitial Lung Disease - No obvious precipitating factor. Flu swab is negative and no PE on CTA. CXR shows cardiomegaly and left pleural effusion and ECHO from 12/2018 showed diastolic dysfunction. EKG shows sinus tachycardia with no significant ST-T wave changes. Elevated troponin may be due to demand ischemia, but will admit to telemetry to rule out ACS. Will get urinalysis, treat with duoneb, IV solumedrol (40 mg q 8hours) and IV lasix. Consult pulmonary. 2. Hypoalbuminemia - Possibly due to combined effects of malnutrition and inflammation associated with comorbid chronic conditions. Will ensure adequate dietary protein intake and also consult city surveyor. 3. Obesity Counseled on the risks associated with obesity. Will provide patient all the necessary assistance, counseling and positive reinforcement to facilitate weight loss. Consult city surveyor. 4. DVT prophylaxis - Lovenox 40 mg SQ q 24 hours. 5. Advance directives - Full code
[2019-02-15] MEDS ORDERED: ALBUTEROL SO4 2.5/IPRATROPIUM 0.5 INH SOL 3 ML VIAL.NEB. NEB PRN (23:59)
[2019-02-16] MEDS ORDERED: ALBUTEROL SO4 0.083% IH SOL 2.5 MG/3 ML VIAL.NEB. NEB PRN
[2019-02-16] MEDS ORDERED: FUROSEMIDE 40 MG/4 ML INJECTABLE VIAL IVPUSH ONE (00:54)
[2019-02-16 02:24] LABS: URINE APPEARANCE Clear; URINE BILIRUBIN Negative (<2.0 mg/dL); URINE COLOR Yellow; URINE GLUCOSE (UA) Negative (NEGATIVE); URINE KETONE 1+ (NEGATIVE); URINE LEUK ESTERASE Negative (NEGATIVE); URINE NITRITE Negative (NEGATIVE); URINE PROTEIN 1+ (NEGATIVE); URINE UROBILINOGEN 0.2 mg/dL (0.2-1.0)
[2019-02-16] MEDS ORDERED: methylPREDNISolone NA SUCC 40 MG/1 ML VIAL ONE (02:39)
[2019-02-16] MEDS: methylPREDNISolone NA SUCC 40 MG/1 ML VIAL IVPB SCH ×3 (02:47→17:37)
[2019-02-16] MEDS ORDERED: guaiFENesin 200 MG/10 ML 10 ML UNIT-DOSE CUPS PO PRN (04:10)
[2019-02-16 06:04] LABS: ALLENS TEST POSITIVE; ARTERIAL BLD GAS O2 SATURATION 99.1 % (95-98); ARTERIAL BLOOD GAS PCO2 41.8 mmHg (35-45); ARTERIAL BLOOD GAS PO2 167 mmHg (80-105); ARTERIAL BLOOD GAS pH 7.34 (7.35-7.45)
[2019-02-16] MEDS ORDERED: HEPARIN NA (PORCINE) 5,000 UNITS/ML 1ML VIAL ONE (06:08)
[2019-02-16] MEDS: HEPARIN NA (PORCINE) 5,000 UNITS/ML 1ML VIAL SQ SCH ×2 (06:13→14:00)
[2019-02-16 06:42] LABS: BASO % 0.5 % (0-2.0); HEMATOCRIT 40.9 % (32.4-45.2); HEMOGLOBIN 13.7 GM/dL (10.7-15.3); LYMPH % 4.1 % (8-40); MCH 28.1 pg (25.7-33.7); MCHC 33.4 g/dl (32.0-36.0); MEAN CELL VOLUME 83.9 fl (80-96); MEAN PLT VOLUME 8.9 fl (7.5-11.1); MONO % 0.6 % (3.8-10.2); NEUT % 94.8 % (42.8-82.8); PLATELET COUNT 235 K/MM3 (134-434); RBC 4.88 M/mm3 (3.60-5.2); RDW 17.4 % (11.6-15.6); WHITE BLOOD COUNT 8.9 K/mm3 (4.0-10.0)
[2019-02-16 07:13] LABS: INR 1.15 (0.83-1.09); PROTHROMBIN TIME (PATIENT) 13.6 SEC (9.7-13.0)
[2019-02-16 07:15] LABS: ACTIVATED PTT 30.7 SECONDS (25.2-36.5)
[2019-02-16] MEDS ORDERED: PANTOPRAZOLE 20 MG TABLET (FP) PO SCH ×2 (07:15→10:00)
[2019-02-16] MEDS ORDERED: LORATADINE 10 MG TABLET PO SCH (07:15)
[2019-02-16 07:34] LABS: ALBUMIN 3.2 g/dl (3.4-5.0); ALK PHOS 84 U/L (45-117); ANION GAP 8 MMOL/L (8-16); BILIRUBIN,TOTAL 0.8 mg/dL (0.2-1); BLOOD UREA NITROGEN 16 mg/dL (7-18); CHLORIDE 111 mmol/L (98-107); CHOLESTEROL 191 mg/dL (50-200); CO2 21 mmol/L (21-32); CREATININE 0.8 mg/dL (0.55-1.3); GLUCOSE,RANDOM 134 mg/dL (74-106); HDL CHOLESTEROL 58 mg/dL (40-60); MAGNESIUM 2.3 mg/dL (1.8-2.4); PHOSPHOROUS 4.4 mg/dL (2.5-4.9); POTASSIUM 4.4 mmol/L (3.5-5.1); SGOT/AST 14 U/L (15-37); SGPT/ALT 25 U/L (13-61); SODIUM 139 mmol/L (136-145); TOT PROT 6.4 g/dl (6.4-8.2); TRIGLYCERIDES 73 mg/dL (0-150)
[2019-02-16] MEDS ORDERED: ALBUTEROL SO4 2.5/IPRATROPIUM 0.5 INH SOL 3 ML VIAL.NEB. NEB ONE (09:01)
[2019-02-16] MEDS ORDERED: CYCLOBENZAPRINE HCL 5 MG TABLET PO SCH (10:00)
[2019-02-16] MEDS ORDERED: FUROSEMIDE 40 MG/4 ML INJECTABLE VIAL IVPUSH SCH ×2 (10:00)
[2019-02-16] MEDS ORDERED: ASPIRIN COATED 81 MG TABLET.EC PO SCH (10:00)
[2019-02-16] MEDS ORDERED: PANTOPRAZOLE 40 MG TABLET (FP) PO SCH (10:00)
[2019-02-16] MEDS ORDERED: FLUTICASONE PROP 0.05% 16 GM NASAL SPRAY NS SCH (10:00)
[2019-02-16] MEDS ORDERED: GABAPENTIN 300 MG CAPSULE (FP) PO SCH (10:00)
--- NOTE | 2019-02-16 10:43 | EKG ---
Test Reason : Blood Pressure : / mmHG Vent. Rate : 102 BPM Atrial Rate : 102 BPM P-R Int : 140 ms QRS Dur : 062 ms QT Int : 338 ms P-R-T Axes : 072 114 -62 degrees QTc Int : 440 ms SINUS TACHYCARDIA RIGHT AXIS DEVIATION RIGHT VENTRICULAR HYPERTROPHY T WAVE ABNORMALITY, CONSIDER INFERIOR ISCHEMIA ABNORMAL ECG Confirmed by Nico Rahman MD ([id number]) on 02/16/2019 10:42:57 AM Referred By: Confirmed By:Nico Rahman MD
[2019-02-16 11:32] LABS: ANISOCYTOSIS 0; MACROCYTOSIS 0; PLATELET ESTIMATE NORMAL
[2019-02-16] MEDS ORDERED: DOXYCYCLINE INJECTION 100 MG in DEXTROSE 5%-WATER - 100 ML IVPB SCH (12:00)
--- NOTE | 2019-02-16 12:58 | CON.PULM ---
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 Admitted via the ER due to progressive SOB & SHELLEY over 1 week. She did receive an outpatient course of Zithromax. Patient is followed by Dr Maya at [facility] – [place]. Her last visit was in October. She does get an infusion of Rituxan every 6 months. She is only maintained on Albuterol PRN and Singulair. She was previously on Symbicort but it was discontinued. She is not maintained on steroids. She has never had a lung biopsy. She reports this is her 3rd CT scan since October (rest are at [facility] – [place] No travel history or sick contacts. No hemoptysis. No fever or chills. CTA: No PE; slight worsening of bibasilar ground glass pattern, no acute areas of consolidation or infiltrates - History Source History Provided By: Patient Limitations to Obtaining History: No Limitations - Past Medical History TAPPER SHANK: Yes: Migraine, Other Cardio/Vascular: Yes: Hyperlipdemia, Pulmonary Hypertension (PASP 45 mmHg on echo from 11/14 and 30-40 mmHg on echo from this admission). No: HTN Pulmonary: Yes: Asthma, Bronchitis, O2 Dependent, Pneumonia, Pulmonary Fibrosis , Sleep Apnea, Other (ILD). 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 History of Recent Travel: No Home Medications - Allergies Allergies/Adverse Reactions: Allergies Allergy/AdvReac Type Severity Reaction Status Date / Time Penicillins Allergy Verified 02/15/19 14:31 tomatoes Allergy Uncoded 02/15/19 14:31 - Home Medications Home Medications: Ambulatory Orders Cetirizine HCl [Zyrtec -] 5 mg PO DAILY PRN 02/15/16 Aspirin Coated [Ecotrin -] 81 mg PO DAILY #30 tablet.ec 02/18/16 Esomeprazole Magnesium [Nexium 24Hr] 20 mg PO DAILY PRN 05/12/17 Fluticasone Prop 0.05% Nasal [Flonase -] 2 spray NS DAILY spray 05/15/17 Albuterol 2.5/Ipratropium 0.5 [Duoneb -] 1 amp NEB RQID amp 01/01/18 Gabapentin 600 mg PO BID 05/15/18 Medical Marijuana [Medical Marijuana Oil] 1 tab PO DAILY 07/17/18 Cyclobenzaprine HCl 5 mg PO DAILY #60 tablet 08/17/18 Glutamine [l-Glutamine] 500 mg PO HS #120 capsule MDD 2 09/24/18 Montelukast Sodium [Singulair] 10 mg PO DAILY 02/15/19 Family Disease History - Family Disease History Family Disease History: Diabetes: Mother (, CVA in her late 70s), Heart Disease: Sister (two living ), CA: Brother (one living, one cancer), Respiratory: Sister, Other: Father (, MVA), Mother, Brother, Sister, Son (two adults - one OA), Daughter (one adult - healthy) Review of Systems - Review of Systems Constitutional: reports: Malaise. denies: Chills, Fever, Night Sweats, Unintentional Wgt. Loss Eyes: reports: No Symptoms HENT: reports: No Symptoms Neck: reports: No Symptoms Cardiovascular: reports: Shortness of Breath. denies: Chest Pain, Edema, Palpitations Respiratory: reports: Cough, Snoring, SOB, SOB on Exertion, Wheezing. denies: Hemoptysis Gastrointestinal: reports: No Symptoms Genitourinary: reports: No Symptoms Breasts: reports: No Symptoms Reported Musculoskeletal: reports: No Symptoms Integumentary: reports: No Symptoms Neurological: reports: No Symptoms Endocrine: reports: No Symptoms Hematology/Lymphatic: reports: No Symptoms Psychiatric: reports: No Symptoms Physical Exam Vital Sings: Vital Signs Temperature 97.8 F 02/16/19 09:10 Pulse Rate 68 02/16/19 09:10 Respiratory Rate 20 02/16/19 09:10 Blood Pressure 113/75 02/16/19 09:10 O2 Sat by Pulse Oximetry (%) 98 02/16/19 09:21 Constitutional: Yes: No Distress, Calm Eyes: Yes: Conjunctiva Clear, EOM Intact HENT: Yes: Atraumatic, Normocephalic Neck: Yes: Supple, Trachea Midline Cardiovascular: Yes: Regular Rate and Rhythm Respiratory: Yes: Cough, Diminished, Rales, Rhonchi, SOB, SOB on Exertion, Tachypnea, Wheezes. No: Accessory Muscle Use, Stridor ...Inspection: Yes: WNL ...Clubbing: No Gastrointestinal: Yes: Normal Bowel Sounds, Soft, Abdomen, Obese Renal/: Yes: WNL Musculoskeletal: Yes: WNL Extremities: Yes: WNL Edema: No Peripheral Pulses WNL: Yes Integumentary: Yes: WNL Neurological: Yes: WNL, Alert, Oriented ...Motor Strength: WNL Psychiatric: Yes: WNL, Alert, Oriented Labs: CBC, BMP 02/16/19 06:00 02/16/19 06:00 ABG Results ABG pH 7.34 (7.35-7.45) L 02/16/19 06:00 ABG pCO2 at Pt Temp 41.8 mmHg (35-45) 02/16/19 06:00 ABG pO2 at Pt Temp 167 mmHg (80-105) H 02/16/19 06:00 ABG HCO3 22.1 mmol/L (22-27) 02/16/19 06:00 ABG O2 Sat (Measured) 99.1 % (95-98) H 02/16/19 06:00 ABG O2 Content 18.2 % vol (15-22) 02/16/19 06:00 ABG Base Excess -3.0 meq/l (-2-2) L 02/16/19 06:00 Imaging - Results Cat Scan: Report Reviewed, Image Reviewed Problem List - Problems (1) Interstitial lung disease Code(s): J84.9 - INTERSTITIAL PULMONARY DISEASE, UNSPECIFIED (2) Shortness of breath Code(s): R06.02 - SHORTNESS OF BREATH (3) Rheumatoid factor positive Code(s): R76.8 - OTHER SPECIFIED ABNORMAL IMMUNOLOGICAL FINDINGS IN SERUM (4) TARA positive Code(s): R76.8 - OTHER SPECIFIED ABNORMAL IMMUNOLOGICAL FINDINGS IN SERUM (5) Asthma Code(s): J45.909 - UNSPECIFIED ASTHMA, UNCOMPLICATED (6) Interstitial lung disease due to connective tissue disease Code(s): M35.8 - OTHER SPECIFIED SYSTEMIC INVOLVEMENT OF CONNECTIVE TISSUE; J84.89 - OTHER SPECIFIED INTERSTITIAL PULMONARY DISEASES (7) Sleep apnea with use of continuous positive airway pressure (CPAP) Code(s): G47.30 - SLEEP APNEA, UNSPECIFIED (8) Pulmonary hypertension Code(s): I27.20 - PULMONARY HYPERTENSION, UNSPECIFIED (9) Pericardial effusion Code(s): I31.3 - PERICARDIAL EFFUSION (NONINFLAMMATORY) Assessment/Plan Noted IV Medrol: can continue for a short course BD TX O2 to maintain saturation CPAP QHS @ 8 cm H2O. If she has increased WOB, can change mode to NIPPV No smoking Low threshold to D/C ABX Needs to follow up ECHO: assess for pericardial effusion and Pulmonary HTN. Worsening of her PAH may the cause of a significant part of her symptoms VTE prophylaxis Will follow Thank you. Dr Alanis
--- NOTE | 2019-02-16 13:20 | ECHO ---
Name: MELISSA CACERES Exam:Adult Echocardiogram Study Date: 02/16/2019 10:08 AM Age: 63 yrs Reason For Study: SOB Height: 66 in Weight: 230 lb BSA: 2.1 m2 MMode/2D Measurements & Calculations IVSd: 0.72 cm Ao root diam: 2.7 cm LVIDd: 3.6 cm LA dimension: 3.0 cm LVIDs: 2.4 cm LVPWd: 0.84 cm EDV(Teich): 53.9 ml LVOT diam: 2.0 cm ESV(Teich): 19.1 ml Doppler Measurements & Calculations MV E max chacha: 77.5 cm/sec Ao V2 max: 142.9 cm/sec MV A max chacha: 124.9 cm/sec Ao max P.2 mmHg MV E/A: 0.62 MV dec time: 0.10 sec BERTA(V,D): 2.4 cm2 LV V1 max P.2 mmHg TR max chacha: 433.2 cm/sec LV V1 max: 114.0 cm/sec TR max P.2 mmHg PA V2 max: 62.9 cm/sec PI end-d chacha: 197.2 cm/sec PA max P.6 mmHg Left Ventricle The left ventricular cavity is small. The left ventricle is hyperdynamic. Ejection Fraction = 75. The transmitral spectral Doppler flow pattern is suggestive of impaired LV relaxation. Paradoxical septal motion is consistent with right ventricular volume overload. Right Ventricle The right ventricle is mildly dilated. The right ventricular systolic function is mildly reduced. Atria The left atrial size is normal. The right atrium is mildly dilated. Mitral Valve The mitral valve is normal in structure and function. There is mild mitral regurgitation. Tricuspid Valve There is mild to moderate tricuspid regurgitation. There is severe pulmonary hypertension. Right vent ricular systolic pressure is elevated at 80 mmhg. Aortic Valve The aortic valve is normal in structure and function. Pulmonic Valve The pulmonic valve is not well visualized. Mild pulmonic valvular regurgitation. Great Vessels The aortic root is normal size. Pericardium/Pleura Small pericardial effusion (<1cm). There are no echocardiographic indications of cardiac tamponade. T here is no pleural effusion. Interpretation Summary The left ventricular cavity is small. The left ventricle is hyperdynamic. Ejection Fraction = 75. Paradoxical septal motion is consistent with right ventricular volume overload. The right ventricle is mildly dilated. The right ventricular systolic function is mildly reduced. The right atrium is mildly dilated. There is mild mitral regurgitation. There is mild to moderate tricuspid regurgitation. There is severe pulmonary hypertension. Right ventricular systolic pressure is elevated at 80 mmhg. Mild pulmonic valvular regurgitation. Small pericardial effusion (<1cm) There are no echocardiographic indications of cardiac tamponade. MD Nico Rahman 02/16/2019 01:20 PM
--- NOTE | 2019-02-16 16:32 | DS ---
Physical Exam: SUBJECTIVE: Patient seen and examined at bedside. no acute events. feels much better. comfortable on 2L NC. denies fever, chills, cp, sob, n/v/d, urinary sxs. after d/w pulm, pt is stable and can be dc on 5d prednisone and will f/u w / [place] [facility] [place] 1 [place]. OBJECTIVE: Vital Signs Period Temp Pulse Resp BP Sys/Novak Pulse Ox Last 24 Hr 97.8 F-98 F 68-97 16-23 96-119/62-77 93-100 PHYSICAL EXAM GENERAL: The patient is awake, alert, and fully oriented, in no acute distress. 2L NC HEAD: Normal with no signs of trauma. EYES: PERRL, extraocular movements intact, sclera anicteric, conjunctiva clear. ENT: Ears normal, nares patent, oropharynx clear without exudates, moist mucous membranes. NECK: Trachea midline, full range of motion, supple. LUNGS: CTAB but mildly diminished, no wheezes, no crackles, no accessory muscle use. HEART: RRR, S1, S2 without murmur, rub or gallop. ABDOMEN: Soft, nontender, nondistended, normoactive bowel sounds, no guarding, no rebound, no hepatosplenomegaly, no masses. EXTREMITIES: 2+ pulses, warm, well-perfused, trace edema. NEUROLOGICAL: Cranial nerves II through XII grossly intact. Normal speech, gait not observed. PSYCH: Normal mood, normal affect. SKIN: Warm, dry, normal turgor, no rashes or lesions noted. LABS Laboratory Results - last 24 hr 02/15/19 02/15/19 02/15/19 01:55 10:55 15:23 WBC RBC Hgb Hct MCV MCH MCHC RDW Plt Count MPV Absolute Neuts (auto) Neutrophils % Neutrophils % (Manual) Band Neutrophils % Lymphocytes % Lymphocytes % (Manual) Monocytes % Monocytes % (Manual) Eosinophils % Eosinophils % (Manual) Basophils % Basophils % (Manual) Myelocytes % (Man) Promyelocytes % (Man) Blast Cells % (Manual) Nucleated RBC % Metamyelocytes Hypochromia Platelet Estimate Polychromasia Poikilocytosis Anisocytosis Microcytosis Macrocytosis PT with INR 13.70 H INR 1.16 H PTT (Actin FS) 28.5 Anticoagulation Therapy Puncture Site ABG pH ABG pCO2 at Pt Temp ABG pO2 at Pt Temp ABG HCO3 ABG O2 Sat (Measured) ABG O2 Content ABG Base Excess Rj Test O2 Delivery Device Oxygen Flow Rate Vent Mode Vent Rate Mechanical Rate PEEP Pressure Support Vent Sodium Potassium Chloride Carbon Dioxide Anion Gap BUN Creatinine Creat Clearance w eGFR Random Glucose Hemoglobin A1c % Calcium Phosphorus Magnesium Total Bilirubin AST ALT Alkaline Phosphatase Creatine Kinase Troponin I 0.08 H B-Natriuretic Peptide Total Protein Albumin Triglycerides Cholesterol Total LDL Cholesterol HDL Cholesterol Resin T3 Uptake Urine Color Yellow Urine Appearance Clear Urine pH 5.0 Ur Specific [place] 1.010 Urine Protein 1+ H Urine Glucose (UA) Negative Urine Ketones 1+ H Urine Blood Negative Urine Nitrite Negative Urine Bilirubin Negative Urine Urobilinogen 0.2 Ur Leukocyte Esterase Negative Urine WBC (Auto) No Result Required. Urine RBC (Auto) No Result Required. Influenza A (Rapid) Influenza B (Rapid) 02/15/19 02/15/19 02/15/19 16:09 16:23 18:25 WBC 10.8 H RBC 4.79 Hgb 13.4 Hct 40.2 MCV 83.7 MCH 27.9 MCHC 33.4 RDW 17.1 H Plt Count 245 D MPV 8.4 D Absolute Neuts (auto) 8.8 H Neutrophils % 81.4 Neutrophils % (Manual) Band Neutrophils % Lymphocytes % 9.3 D Lymphocytes % (Manual) Monocytes % 6.3 D Monocytes % (Manual) Eosinophils % 2.0 D Eosinophils % (Manual) Basophils % 1.0 Basophils % (Manual) Myelocytes % (Man) Promyelocytes % (Man) Blast Cells % (Manual) Nucleated RBC % 0 Metamyelocytes Hypochromia Platelet Estimate Polychromasia Poikilocytosis Anisocytosis Microcytosis Macrocytosis PT with INR INR PTT (Actin FS) Anticoagulation Therapy Puncture Site ABG pH ABG pCO2 at Pt Temp ABG pO2 at Pt Temp ABG HCO3 ABG O2 Sat (Measured) ABG O2 Content ABG Base Excess Rj Test O2 Delivery Device Oxygen Flow Rate Vent Mode Vent Rate Mechanical Rate PEEP Pressure Support Vent Sodium 145 Potassium 4.3 Chloride 113 H Carbon Dioxide 25 Anion Gap 7 L BUN 16 Creatinine 1.0 Creat Clearance w eGFR 56.37 Random Glucose 101 Hemoglobin A1c % Calcium 8.3 L Phosphorus Magnesium Total Bilirubin 0.8 AST 23 ALT 21 Alkaline Phosphatase 82 Creatine Kinase Troponin I 0.08 H B-Natriuretic Peptide 5974.1 H Total Protein 6.2 L Albumin 3.2 L Triglycerides Cholesterol Total LDL Cholesterol HDL Cholesterol Resin T3 Uptake Urine Color Urine Appearance Urine pH Ur Specific [place] Urine Protein Urine Glucose (UA) Urine Ketones Urine Blood Urine Nitrite Urine Bilirubin Urine Urobilinogen Ur Leukocyte Esterase Urine WBC (Auto) Urine RBC (Auto) Influenza A (Rapid) Negative Influenza B (Rapid) Negative 02/16/19 02/16/19 02/16/19 00:23 06:00 06:00 WBC 8.9 RBC 4.88 Hgb 13.7 Hct 40.9 MCV 83.9 MCH 28.1 MCHC 33.4 RDW 17.4 H Plt Count 235 MPV 8.9 Absolute Neuts (auto) 8.4 H Neutrophils % 94.8 H Neutrophils % (Manual) 95.1 H Band Neutrophils % 1.0 Lymphocytes % 4.1 L D Lymphocytes % (Manual) 2.9 L Monocytes % 0.6 L D Monocytes % (Manual) 0 L Eosinophils % 0.0 D Eosinophils % (Manual) 0.0 Basophils % 0.5 Basophils % (Manual) 0.0 Myelocytes % (Man) 0 Promyelocytes % (Man) 0 Blast Cells % (Manual) 0 Nucleated RBC % 0 Metamyelocytes 1 Hypochromia 0 Platelet Estimate Normal Polychromasia 0 Poikilocytosis 0 Anisocytosis 0 Microcytosis 0 Macrocytosis 0 PT with INR 13.60 H INR 1.15 H PTT (Actin FS) 30.7 Anticoagulation Therapy Puncture Site ABG pH ABG pCO2 at Pt Temp ABG pO2 at Pt Temp ABG HCO3 ABG O2 Sat (Measured) ABG O2 Content ABG Base Excess Rj Test O2 Delivery Device Oxygen Flow Rate Vent Mode Vent Rate Mechanical Rate PEEP Pressure Support Vent Sodium Potassium Chloride Carbon Dioxide Anion Gap BUN Creatinine Creat Clearance w eGFR Random Glucose Hemoglobin A1c % Calcium Phosphorus Magnesium Total Bilirubin AST ALT Alkaline Phosphatase Creatine Kinase 55 Troponin I 0.08 H B-Natriuretic Peptide Total Protein Albumin Triglycerides Cholesterol Total LDL Cholesterol HDL Cholesterol Resin T3 Uptake Urine Color Urine Appearance Urine pH Ur Specific [place] Urine Protein Urine Glucose (UA) Urine Ketones Urine Blood Urine Nitrite Urine Bilirubin Urine Urobilinogen Ur Leukocyte Esterase Urine WBC (Auto) Urine RBC (Auto) Influenza A (Rapid) Influenza B (Rapid) 02/16/19 02/16/19 02/16/19 06:00 06:00 06:00 WBC RBC Hgb Hct MCV MCH MCHC RDW Plt Count MPV Absolute Neuts (auto) Neutrophils % Neutrophils % (Manual) Band Neutrophils % Lymphocytes % Lymphocytes % (Manual) Monocytes % Monocytes % (Manual) Eosinophils % Eosinophils % (Manual) Basophils % Basophils % (Manual) Myelocytes % (Man) Promyelocytes % (Man) Blast Cells % (Manual) Nucleated RBC % Metamyelocytes Hypochromia Platelet Estimate Polychromasia Poikilocytosis Anisocytosis Microcytosis Macrocytosis PT with INR INR PTT (Actin FS) Anticoagulation Therapy No Result Required. Puncture Site Right radial ABG pH 7.34 L ABG pCO2 at Pt Temp 41.8 ABG pO2 at Pt Temp 167 H ABG HCO3 22.1 ABG O2 Sat (Measured) 99.1 H ABG O2 Content 18.2 ABG Base Excess -3.0 L Rj Test Positive O2 Delivery Device No Result Required. Oxygen Flow Rate 40% Vent Mode Cpap Vent Rate No Result Required. Mechanical Rate No Result Required. PEEP 0.0 Pressure Support Vent 10 Sodium 139 Potassium 4.4 Chloride 111 H Carbon Dioxide 21 Anion Gap 8 BUN 16 Creatinine 0.8 Creat Clearance w eGFR 72.92 Random Glucose 134 H Hemoglobin A1c % 6.7 H Calcium 9.0 Phosphorus 4.4 Magnesium 2.3 Total Bilirubin 0.8 AST 14 L ALT 25 Alkaline Phosphatase 84 Creatine Kinase Troponin I 0.06 H B-Natriuretic Peptide Total Protein 6.4 Albumin 3.2 L Triglycerides 73 Cholesterol 191 Total LDL Cholesterol 122 H HDL Cholesterol 58 Resin T3 Uptake 36.0 Urine Color Urine Appearance Urine pH Ur Specific [place] Urine Protein Urine Glucose (UA) Urine Ketones Urine Blood Urine Nitrite Urine Bilirubin Urine Urobilinogen Ur Leukocyte Esterase Urine WBC (Auto) Urine RBC (Auto) Influenza A (Rapid) Influenza B (Rapid) [id number] CT/CHEST CTA Chest CT angiography Clinical information: evaluate for pulmonary embolism; history of interstitial lung disease Multiplanar imaging was performed following intravenous administration of nonionic contrast. No discrete pulmonary embolus is noted. Chronic interstitial subpleural changes are noted within the upper and lower lung felix bilaterally which are probably slightly increased in comparison to a CT study of 05/12/2017. The main pulmonary artery is dilated with a 3.5 cm transverse diameter, previously measuring 3.1 cm. No pleural effusion or acute infiltrate is seen. There is no definite cardiac enlargement. Development of either a small amount of pericardial fluid is seen within the posteroinferior aspect of the pericardial space versus representing development of mild nonspecific pericardial thickening (transaxial image 70 -73). No aortic aneurysm is seen. Interval development of mildly enlarged mediastinal and bilateral hilar lymph nodes is noted. No axillary lymphadenopathy is seen. The visualized osseous structures demonstrate no obvious acute pathology. Status post cholecystectomy as on the prior exam. IMPRESSION: No CT evidence of pulmonary embolism. Chronic subpleural interstitial changes are seen bilaterally which are probably slightly increased in comparison to an exam of 05/12/2017. Increased dilatation of the main pulmonary artery is noted with a current diameter 3.5 cm, previously 3.1 cm, suggestive of increased pulmonary arterial pressure. Apparent interval development of mild focal pericardial opacity is seen along the posterior inferior border which may represent a small amount of fluid versus focal nonspecific pericardial thickening. Correlate with echocardiography. Interval development of mild nonspecific mediastinal and bilateral hilar lymphadenopathy is noted. Echo: 12/31/2017 LV normal EF with poor compliance ,mild RV dilated ,normal LA, RA,trace Tricupside regurgitation ,RV P 38 mmhg, small to moderate pericardial effusion. ECHO 02/16/19 Interpretation Summary The left ventricular cavity is small. The left ventricle is hyperdynamic. Ejection Fraction = 75. Paradoxical septal motion is consistent with right ventricular volume overload. The right ventricle is mildly dilated. The right ventricular systolic function is mildly reduced. The right atrium is mildly dilated. There is mild mitral regurgitation. There is mild to moderate tricuspid regurgitation. There is severe pulmonary hypertension. Right ventricular systolic pressure is elevated at 80 mmhg. Mild pulmonic valvular regurgitation. Small pericardial effusion (<1cm) There are no echocardiographic indications of cardiac tamponade. HOSPITAL COURSE: Date of Admission:02/15/19 Date of Discharge: 02/16/19 63yo F with PMH of ILD (2L home O2), RA (IV Rituxan q6 mo), CHF, Severe ASIYA on CPAP, Pulmonary HTN presenting to ED with 1 week of worsening SOB & SHELLEY and productive cough despite outpatient course of Z-pack x3d. Admitted for acute asthma exacerbation vs acute on Chronic Hypoxic Respiratory Failure 2/2 worsening Pulmonary HTN 2/2 ILD possibly 2/2 RA. CXR : Large heart , prominent lung marking. CTA today negative for PE, but worsening pulm HTN , dilated PA 3.5 compare to 3.1 in last CTA , worsening ILD. no acute areas of consolidation or infiltrates. Echo EF 75%, RV systolic function is mildly reduced w/ systolic pressure is elevated at 80 mmhg. severe pulmonary hypertension. Small pericardial effusion (<1cm). pt tx w/ DUONEB, IV Solumedrol 40Q 8hr, doxycycline. pt sxs quickly improved and is satting 90s at baseline w/ 2L NC. Pulm consulted. After d/w pulm, pt is stable and can be dc on PO prednisone 40mg qd x5d and doxy 100mg bid x4d and will f/u w/ her pulm Dr. Joe at [facility] [phone] within 1 week or sooner given changes and worsening of pulm HTN/ILD. urine legionella AG, flu neg. A1c 6.7 # Elevated trop * peaked at 0.08....0.06 likely from demand ischemia due to hypoxia * EKG with no St, T wave changes #CHF - not in Exacerbation. BNP elevated 5974 2/2 pulm htn/ILD #RA with Interstitial Lung Disease * [place] [facility] [place] last visit was in October. She does get an infusion of Rituxan every 6 months. She is only maintained on Albuterol PRN and Singulair. She was previously on Symbicort but it was discontinued. She is not maintained on steroids. She has never had a lung biopsy. She reports this is her 3rd CT scan since October (rest are at [facility] # OSAS * on CPAP at night pt is stable for dc w/ appropriate outpt f/u and prednisone 40mg qd x5d and doxy 100mg bid x4d Minutes to complete discharge: 38 Discharge Summary Reason For Visit: SHORTNESS OF BREATH Current Active Problems Hilar lymphadenopathy (Acute) Interstitial lung disease (Acute) Pericardial effusion (Acute) Pulmonary hypertension (Acute) Shortness of breath (Chronic) Condition: Improved - Instructions Diet, Activity, Other Instructions: you came in for shortness of breath due to an exacerbation of your asthma and chronic interstitial lung disease. In addition you have pulmonary hypertension, aka: high blood pressure in your lungs, which is due to your chronic interstitial lung disease. your CT and ultrasound of your heart showed worsening of your pulmonary hypertension which is also contributing to your symptoms. we gave you antibiotics and steroids which helped with your symptoms. Please continue taking prednisone (steroid) 40mg (two 20mg tablets) once a day for 5 days. Please continue taking antibiotic doxycycline 100mg twice a day for 4 more days Please resume your home meds. Please do not smoke as this will worsen you condition It is very important that you follow up with your physician coding specialist Dr. Joe at [facility] [phone] within 1 week. you may need further treatment or work up for your worsening pulmonary hypertension. Or follow up with physician coding specialist Dr. Alanis within 1 week Please follow up with your primary care physician within 1 week If you experience any worsening of shortness of breath or any chest pain, fever , chills, nausea, vomit, diarrhea, please call 911 or go to the ER. Referrals: Delon Alanis MD [Staff Physician] - 1 Week Disposition: HOME - Home Medications Comprehensive Discharge Medication List: Ambulatory Orders Cetirizine HCl [Zyrtec -] 10 mg PO DAILY PRN 02/15/16 Aspirin Coated [Ecotrin -] 81 mg PO DAILY #30 tablet.ec 02/18/16 Esomeprazole Magnesium [Nexium 24Hr] 40 mg PO DAILY PRN 05/12/17 Fluticasone Prop 0.05% Nasal [Flonase -] 2 spray NS DAILY spray 05/15/17 Albuterol 2.5/Ipratropium 0.5 [Duoneb -] 1 amp NEB RQID amp 01/01/18 Gabapentin 600 mg PO BID 05/15/18 Medical Marijuana [Medical Marijuana Oil] 1 tab PO DAILY 07/17/18 Cyclobenzaprine HCl 5 mg PO DAILY #60 tablet 08/17/18 Glutamine [l-Glutamine] 500 mg PO HS #120 capsule MDD 2 09/24/18 Montelukast Sodium [Singulair] 10 mg PO DAILY 02/15/19 Doxycycline Hyclate [Vibramycin] 100 mg PO BID 4 Days #8 capsule 02/16/19 Prednisone [Deltasone] 40 mg PO DAILY 5 Days #10 tablet 02/16/19 This patient is new to me today: Yes Date on this admission: 02/16/19 Emergency Visit: Yes ED Registration Date: 02/15/19 Care time: The patient presented to the Emergency Department on the above date and was hospitalized for further evaluation of their emergent condition. Critical Care patient: No - Discharge Referral Referred to [facility] No
[2019-02-16 17:05] VITALS: BP 122/74; PULSE 90; TEMP 98.1
[2019-02-16 17:57] VITALS: BMI 41.5
--- NOTE | 2019-02-16 21:19 | PN ---
Teaching Attending Note Name of Resident: Estuardo Bhagat ATTENDING PHYSICIAN STATEMENT I saw and evaluated the patient. I reviewed the resident's note and discussed the case with the resident. I agree with the resident's findings and plan as documented. SUBJECTIVE: OBJECTIVE: Last Vital Signs Temp Pulse Resp BP Pulse Ox 98.1 F 90 19 122/74 99 02/16/19 17:00 02/16/19 17:00 02/16/19 17:00 02/16/19 17:00 02/16/19 16:00 Laboratory Results - last 24 hr 02/15/19 02/15/19 02/16/19 01:55 10:55 00:23 WBC RBC Hgb Hct MCV MCH MCHC RDW Plt Count MPV Absolute Neuts (auto) Neutrophils % Neutrophils % (Manual) Band Neutrophils % Lymphocytes % Lymphocytes % (Manual) Monocytes % Monocytes % (Manual) Eosinophils % Eosinophils % (Manual) Basophils % Basophils % (Manual) Myelocytes % (Man) Promyelocytes % (Man) Blast Cells % (Manual) Nucleated RBC % Metamyelocytes Hypochromia Platelet Estimate Polychromasia Poikilocytosis Anisocytosis Microcytosis Macrocytosis PT with INR INR PTT (Actin FS) Anticoagulation Therapy Puncture Site ABG pH ABG pCO2 at Pt Temp ABG pO2 at Pt Temp ABG HCO3 ABG O2 Sat (Measured) ABG O2 Content ABG Base Excess Rj Test O2 Delivery Device Oxygen Flow Rate Vent Mode Vent Rate Mechanical Rate PEEP Pressure Support Vent Sodium Potassium Chloride Carbon Dioxide Anion Gap BUN Creatinine Creat Clearance w eGFR Random Glucose Hemoglobin A1c % Calcium Phosphorus Magnesium Total Bilirubin AST ALT Alkaline Phosphatase Creatine Kinase 55 Troponin I 0.08 H 0.08 H Total Protein Albumin Triglycerides Cholesterol Total LDL Cholesterol HDL Cholesterol Resin T3 Uptake Urine Color Yellow Urine Appearance Clear Urine pH 5.0 Ur Specific [place] 1.010 Urine Protein 1+ H Urine Glucose (UA) Negative Urine Ketones 1+ H Urine Blood Negative Urine Nitrite Negative Urine Bilirubin Negative Urine Urobilinogen 0.2 Ur Leukocyte Esterase Negative Urine WBC (Auto) No Result Required. Urine RBC (Auto) No Result Required. 02/16/19 02/16/19 02/16/19 06:00 06:00 06:00 WBC 8.9 RBC 4.88 Hgb 13.7 Hct 40.9 MCV 83.9 MCH 28.1 MCHC 33.4 RDW 17.4 H Plt Count 235 MPV 8.9 Absolute Neuts (auto) 8.4 H Neutrophils % 94.8 H Neutrophils % (Manual) 95.1 H Band Neutrophils % 1.0 Lymphocytes % 4.1 L D Lymphocytes % (Manual) 2.9 L Monocytes % 0.6 L D Monocytes % (Manual) 0 L Eosinophils % 0.0 D Eosinophils % (Manual) 0.0 Basophils % 0.5 Basophils % (Manual) 0.0 Myelocytes % (Man) 0 Promyelocytes % (Man) 0 Blast Cells % (Manual) 0 Nucleated RBC % 0 Metamyelocytes 1 Hypochromia 0 Platelet Estimate Normal Polychromasia 0 Poikilocytosis 0 Anisocytosis 0 Microcytosis 0 Macrocytosis 0 PT with INR 13.60 H INR 1.15 H PTT (Actin FS) 30.7 Anticoagulation Therapy Puncture Site ABG pH ABG pCO2 at Pt Temp ABG pO2 at Pt Temp ABG HCO3 ABG O2 Sat (Measured) ABG O2 Content ABG Base Excess Rj Test O2 Delivery Device Oxygen Flow Rate Vent Mode Vent Rate Mechanical Rate PEEP Pressure Support Vent Sodium 139 Potassium 4.4 Chloride 111 H Carbon Dioxide 21 Anion Gap 8 BUN 16 Creatinine 0.8 Creat Clearance w eGFR 72.92 Random Glucose 134 H Hemoglobin A1c % Calcium 9.0 Phosphorus 4.4 Magnesium 2.3 Total Bilirubin 0.8 AST 14 L ALT 25 Alkaline Phosphatase 84 Creatine Kinase Troponin I 0.06 H Total Protein 6.4 Albumin 3.2 L Triglycerides 73 Cholesterol 191 Total LDL Cholesterol 122 H HDL Cholesterol 58 Resin T3 Uptake 36.0 Urine Color Urine Appearance Urine pH Ur Specific [place] Urine Protein Urine Glucose (UA) Urine Ketones Urine Blood Urine Nitrite Urine Bilirubin Urine Urobilinogen Ur Leukocyte Esterase Urine WBC (Auto) Urine RBC (Auto) 02/16/19 02/16/19 06:00 06:00 WBC RBC Hgb Hct MCV MCH MCHC RDW Plt Count MPV Absolute Neuts (auto) Neutrophils % Neutrophils % (Manual) Band Neutrophils % Lymphocytes % Lymphocytes % (Manual) Monocytes % Monocytes % (Manual) Eosinophils % Eosinophils % (Manual) Basophils % Basophils % (Manual) Myelocytes % (Man) Promyelocytes % (Man) Blast Cells % (Manual) Nucleated RBC % Metamyelocytes Hypochromia Platelet Estimate Polychromasia Poikilocytosis Anisocytosis Microcytosis Macrocytosis PT with INR INR PTT (Actin FS) Anticoagulation Therapy No Result Required. Puncture Site Right radial ABG pH 7.34 L ABG pCO2 at Pt Temp 41.8 ABG pO2 at Pt Temp 167 H ABG HCO3 22.1 ABG O2 Sat (Measured) 99.1 H ABG O2 Content 18.2 ABG Base Excess -3.0 L Rj Test Positive O2 Delivery Device No Result Required. Oxygen Flow Rate 40% Vent Mode Cpap Vent Rate No Result Required. Mechanical Rate No Result Required. PEEP 0.0 Pressure Support Vent 10 Sodium Potassium Chloride Carbon Dioxide Anion Gap BUN Creatinine Creat Clearance w eGFR Random Glucose Hemoglobin A1c % 6.7 H Calcium Phosphorus Magnesium Total Bilirubin AST ALT Alkaline Phosphatase Creatine Kinase Troponin I Total Protein Albumin Triglycerides Cholesterol Total LDL Cholesterol HDL Cholesterol Resin T3 Uptake Urine Color Urine Appearance Urine pH Ur Specific [place] Urine Protein Urine Glucose (UA) Urine Ketones Urine Blood Urine Nitrite Urine Bilirubin Urine Urobilinogen Ur Leukocyte Esterase Urine WBC (Auto) Urine RBC (Auto) Home Medications Medication Instructions Recorded Cetirizine HCl [Zyrtec -] 10 mg PO DAILY PRN 02/15/16 Aspirin Coated [Ecotrin -] 81 mg PO DAILY #30 tablet.ec 02/18/16 Esomeprazole Magnesium [Nexium 40 mg PO DAILY PRN 05/12/17 24Hr] Fluticasone Prop 0.05% Nasal 2 spray NS DAILY spray 05/15/17 [Flonase -] Albuterol 2.5/Ipratropium 0.5 1 amp NEB RQID amp 01/01/18 [Duoneb -] Gabapentin 600 mg PO BID 05/15/18 Medical Marijuana [Medical 1 tab PO DAILY 07/17/18 Marijuana Oil] Cyclobenzaprine HCl 5 mg PO DAILY #60 tablet 08/17/18 Glutamine [l-Glutamine] 500 mg PO HS #120 capsule MDD 2 09/24/18 Montelukast Sodium [Singulair] 10 mg PO DAILY 02/15/19 Doxycycline Hyclate [Vibramycin] 100 mg PO BID 4 Days #8 capsule 02/16/19 Prednisone [Deltasone] 40 mg PO DAILY 5 Days #10 tablet 02/16/19 ASSESSMENT AND PLAN:
[2019-02-16] MEDS ORDERED: MONTELUKAST NA 10 MG TABLET PO SCH (22:00)
== END 2019-02-16 17:44 | disposition home or self-care (01) | DRG 315 ==
LOC: JER 14:09 → JERBED 18:20
PROVIDERS: ADMIT Internal Medicine
DX: I27.20 Pulmonary hypertension, unspecified (principal); J84.9 Interstitial pulmonary disease, unspecified; I24.8 Other forms of acute ischemic heart disease; I31.3 Pericardial effusion (noninflammatory); J96.11 Chronic respiratory failure with hypoxia; Z68.41 Body mass index [BMI] 40.0-44.9, adult; J45.901 Unspecified asthma with (acute) exacerbation; M35.8 Other specified systemic involvement of connective tissue; G47.33 Obstructive sleep apnea (adult) (pediatric); Z99.81 Dependence on supplemental oxygen; R00.0 Tachycardia, unspecified; E66.01 Morbid (severe) obesity due to excess calories; M06.9 Rheumatoid arthritis, unspecified; Z88.0 Allergy status to penicillin; E88.09 Other disorders of plasma-protein metabolism, not elsewhere classified; G43.909 Migraine, unspecified, not intractable, without status migrainosus; M54.5 Low back pain; M79.7 Fibromyalgia; M19.90 Unspecified osteoarthritis, unspecified site; R76.8 Other specified abnormal immunological findings in serum; I50.9 Heart failure, unspecified; F12.20 Cannabis dependence, uncomplicated
CPT/HCPCS: 36415; 36600; 71046-TC-FY; 71275-TC; 80053; 80061; 81003; 81015; 82550; 82803; 83036; 83721; 83735; 83880; 84100; 84479; 84484; 85025; 85610; 85730; 87804; 87899; 93005; 93010; 93306-TC; 94660; 99285-25; J0131; J1644